=== PATIENT | female | born 1940 | race Hispanic/Latino ===

== ENCOUNTER 2018-11-12 21:07 | Inpatient (IN) | payer MEDICARE, OTHER ==
[2018-11-12] MEDS ORDERED: NACL 0.9% 1000 ML IV ONE (21:30)
--- NOTE | 2018-11-12 21:42 | Emergency Department Report ---
ED General Adult HPI - General Chief complaint: Fall Stated complaint: FALL/NECK PAIN Time Seen by Provider: 11/12/18 21:17 Source: EMS Mode of arrival: Stretcher Limitations: Physical Limitation - History of Present Illness Initial comments: Patient is 78 years old female, lives by herself, patient brought to the emergency room via EMS after patient daughter found patient on the floor, confused. The patient and daughter think that she fell from bed. Family stated that patient was recently discharged from [facility] for anemia that required 2 units of blood. They stated that she had a upper endoscopy and they couldn't find any abnormalities and she was referred to follow-up with a hematology as an outpatient. In the emergency room patient is alert but confused with no significant distress. Patient is unable to answer questions a ppropriately. Patient found to be tachycardic with a temperature of 100.3. Sepsis protocol initiated. - Related Data Allergies Allergy/AdvReac Type Severity Reaction Status Date / Time ibuprofen Allergy Unknown Verified 11/12/18 21:44 Penicillins Allergy Hives Verified 11/12/18 21:43 codeine AdvReac Nausea Verified 11/12/18 21:44 ED Review of Systems ROS: Stated complaint: FALL/NECK PAIN Other details as noted in HPI Comment: Unobtainable due to pts medical conditions ED Past Medical Hx - Social History Smoking Status: Never Smoker Substance Use Type: None ED Physical Exam - General Limitations: Physical Limitation General appearance: alert, in no apparent distress - Head Head exam: Present: atraumatic, normocephalic, normal inspection - Eye Eye exam: Present: normal appearance, PERRL - ENT ENT exam: Present: mucous membranes dry - Neck Neck exam: Present: normal inspection, full ROM. Absent: tenderness, meningismus, lymphadenopathy, thyromegaly - Respiratory Respiratory exam: Present: normal lung sounds bilaterally - Cardiovascular Cardiovascular Exam: Present: tachycardia - GI/Abdominal GI/Abdominal exam: Present: soft, normal bowel sounds. Absent: distended, tenderness, guarding, rebound, rigid, organomegaly, mass, bruit, pulsatile mass, hernia - Extremities Exam Extremities exam: Present: normal inspection, full ROM, normal capillary refill. Absent: pedal edema, calf tenderness - Back Exam Back exam: Present: normal inspection, full ROM. Absent: CVA tenderness (R), CVA tenderness (L), muscle spasm, paraspinal tenderness, vertebral tenderness - Neurological Exam Neurological exam: Present: alert, altered, CN II-XII intact - Psychiatric Psychiatric exam: Present: normal mood - Skin Skin exam: Present: warm, intact, normal color ED Course Vital Signs 11/12/18 11/12/18 11/12/18 21:24 21:30 21:35 Temperature 100.3 F H Pulse Rate 114 H 109 H 110 H Respiratory 21 18 18 Rate Blood Pressure 122/66 Blood Pressure 136/61 [Left] O2 Sat by Pulse 98 97 100 Oximetry 11/12/18 11/12/18 11/12/18 21:46 22:00 22:11 Temperature Pulse Rate 108 H 99 H Respiratory 26 H 19 18 Rate Blood Pressure 122/66 126/58 Blood Pressure [Left] O2 Sat by Pulse 100 99 Oximetry 11/13/18 11/13/18 11/13/18 00:01 00:16 00:30 Temperature Pulse Rate 96 H 92 H Respiratory 13 17 Rate Blood Pressure 126/58 126/58 126/58 Blood Pressure [Left] O2 Sat by Pulse 95 99 94 Oximetry 11/13/18 11/13/18 11/13/18 01:00 01:30 02:00 Temperature Pulse Rate 99 H 85 82 Respiratory 18 14 11 L Rate Blood Pressure 114/72 114/72 106/60 Blood Pressure [Left] O2 Sat by Pulse 97 99 98 Oximetry - Reevaluation(s) Reevaluation #1: 11/13/18 02:38 NIHSS is 2. ED Medical Decision Making - Lab Data Result diagrams: 11/12/18 21:35 11/12/18 21:35 - EKG Data -: EKG Interpreted by Nc EKG shows normal: sinus rhythm Rate: tachycardia - EKG Data Interpretation: no acute changes - Radiology Data Radiology results: report reviewed - Medical Decision Making Patient is 78 years old female, lives by herself, patient brought to the emergency room via EMS after patient daughter found patient on the floor, confused. The patient and daughter think that she fell from bed. Family stated that patient was recently discharged from [facility] for anemia that required 2 units of blood. They stated that she had a upper endoscopy and they couldn't find any abnormalities and she was referred to follow-up with a hematology as an outpatient. In the emergency room patient is alert but confused with no significant distress. Patient is unable to answer questions appropriately. Patient found to be tachycardic with a temperature of 100.3. Sepsis protocol initiated. Patient labs reviewed, CT head CT C-spine and CT abdomen and pelvis reviewed. I discussed the patient with Dr. Gambino, she agreed to admit the patient to medical service for further management. Critical Care Time: Yes Critical care time in (mins) excluding proc time.: 30 Critical care attestation.: If time is entered above; I have spent that time in minutes in the direct care of this critically ill patient, excluding procedure time. ED Disposition Clinical Impression: Altered mental status, Elevated troponin, Sepsis, Colonic mass, Pelvic mass in female Disposition: DC-09 OP ADMIT IP TO THIS HOSP Is pt being admited?: Yes Condition: Stable Referrals: ALVAREZ CASTILLO MD [Primary Care Provider] - 3-5 Days
[2018-11-12 22:10] LABS: Basophils % (Auto) 0.2 % (0.0-1.8); Hematocrit 23.9 % (30.3-42.9); Hemoglobin 8.2 gm/dl (10.1-14.3); Lymphocytes # (Auto) 0.5 K/mm3 (1.2-5.4); Lymphocytes % (Auto) 4.9 % (13.4-35.0); Mean Corpuscular HGB Conc 35 % (30-34); Mean Corpuscular Volume 89 fl (79-97); Monocytes # (Auto) 0.7 K/mm3 (0.0-0.8); Monocytes % (Auto) 7.5 % (0.0-7.3); Platelet Count 261 K/mm3 (140-440); Red Blood Count 2.69 M/mm3 (3.65-5.03); Red Cell Distribution Width 16.9 % (13.2-15.2)
[2018-11-12 22:20] LABS: INR 1.41 (0.87-1.13)
[2018-11-12 22:21] LABS: Partial Thromboplastin Time 34.8 Sec. (24.2-36.6)
[2018-11-12 22:47] LABS: Albumin 2.8 g/dL (3.9-5); Bilirubin,Direct 1.3 mg/dL (0-0.2)
[2018-11-12 22:48] LABS: Alanine Aminotransferase 90 units/L (7-56); Albumin 2.8 g/dL (3.9-5); BUN/Creatinine Ratio 16; Blood Urea Nitrogen 8 mg/dL (7-17); Calcium 8.9 mg/dL (8.4-10.2); Hemolysis Index 0
[2018-11-12 22:59] LABS: LDL Cholesterol,Direct 46 mg/dL (50-130)
[2018-11-12 23:02] LABS: Bilirubin,Urine NEG (Negative); Blood,Urine MOD (Negative); Color,Urine Yellow (Yellow); Protein,Urine <15 mg/dL mg/dL (Negative)
[2018-11-12 23:10] LABS: HDL Cholesterol 22 mg/dL (40-59)
--- NOTE | 2018-11-12 23:42 | Cat Scan Report ---
PROCEDURE: CT CERVICAL SPINE WO CON TECHNIQUE: Computerized tomography of the cervical spine was performed from the skull base to T1 wit hout contrast material. CT DOSE LENGTH PRODUCT: mGycm HISTORY: NECK INJURY COMPARISONS: None . FINDINGS: Vertebral alignment and height are within normal limits. There is evidence of surgical fusion from C4 to C7 is anterior plate and screws. An acute fracture is not identified. C1-2: Narrowing of the atlantoaxial joint space is noted with osteophyte formation. C2-3: Mild degree left neural foraminal stenosis is noted secondary to moderate degree of facet arthr opathy.. C3-4: Mild degree broad-based disc complexes noted without significant spinal canal compromise. There is mild to moderate degree bilateral neural foraminal stenoses secondary to uncovertebral and facet degenerative changes.. C4-5: No significant spinal canal or neural foraminal compromise is.. C5-6: No significant spinal canal or neural foraminal compromise is noted.. C6-7: Mild degree broad-based disc osteophyte complexes noted without significant spinal canal or isidro ral foraminal compromise.. C7-T1: Moderate degree right facet arthropathy is noted without significant spinal canal or neural fo raminal compromise.. Fractures: None . IMPRESSION: No acute fracture Anterior cervical fusion pleural C4-C7 Multilevel cervical spondylosis as described above.. This document is electronically signed by Clemente Bonilla MD., November 12 2018 11:40:21 PM ET
--- NOTE | 2018-11-12 23:48 | Cat Scan Report ---
PROCEDURE: CT HEAD/BRAIN WO CON TECHNIQUE: Computerized tomography of the head was performed without contrast material. HISTORY: FALL/AMS COMPARISONS: None . FINDINGS: There are lacunar infarcts in the subcortical white matter of the frontal lobes bilaterally and right caudate, some of indeterminate age. White matter changes most likely represent chronic postischemic demyelination/small vessel disease. There is no evidence of intracranial hemorrhage or mass effect. Ventricular size is concordant with the degree of atrophy. There is atherosclerotic vascular calcification of the internal carotid arteries and vertebral arteri es bilaterally at the skull base. The visualized portions of the orbits, paranasal and mastoid sinuses are notable for deformity of the medial wall of the right orbit. This may be chronic posttraumatic change or may be congenital in angela ure. There is no evidence of acute change in the adjacent ethmoid sinus to suggest that this is acute . There is no evidence of fracture of the cranial vault. There is left parietal scalp soft tissue swelling. IMPRESSION: 1. Lacunar infarcts in the subcortical white matter of the frontal lobes bilaterally and right basal ganglia, some of indeterminate age. If there is a clinical suspicion of acute cerebral ischemia and if there is no clinical contraindicat ion, MRI brain may be helpful. 2. No evidence of intracranial hemorrhage or mass effect. 3. Left parietal scalp soft tissue swelling. 4. Deformity medial wall right orbit which may represent sequela of previous medial orbital wall frac ture or may be congenital in nature. There is no evidence of acute change in the adjacent ethmoid sin us to suggest that this is an acute fracture. This document is electronically signed by Rasheeda Rodriguez MD., November 12 2018 11:46:25 PM ET
--- NOTE | 2018-11-13 00:12 | Cat Scan Report ---
PROCEDURE: CT ABDOMEN PELVIS W CON TECHNIQUE: Computerized axial tomography of the abdomen and pelvis was performed after the administr ation of IV iodinated nonionic contrast. CT DOSE LENGTH PRODUCT: mGycm HISTORY: abdominal pain COMPARISONS: None . FINDINGS: A partially visualized 7 millimeters subpleural nodule is noted in the right lower lobe. There is a s mall hiatal hernia. Liver, spleen, pancreas and adrenal glands are within normal limits. Bilateral ki dneys demonstrate uniform enhancement without hydronephrosis. Urinary bladder is partially distended with normal outlines. Aorta is of normal caliber. There is no free air. Mild degree free fluid is not ed in the pelvis. There is also mild degree fluid in the perihepatic region. Status post cholecystect neal. Small bowel loops are within normal limits. There appears to be circumferential wall thickening involving the hepatic flexure resulting in luminal narrowing. Multiple nodular lesions are identified medial to the suspected colonic mass measuring up to 2.3 x 1.9 cm. There appears to be a mass lesion in the cul-de-sac measuring 6.6 x 4.9 cm. Vertebral height is normal. A 9 mm lymph node is noted in the left iliac region. IMPRESSION: Findings are suspicious for colonic carcinoma involving the hepatic flexure. Nodular lesions medial t o the hepatic flexure most likely represent lymphadenopathy. A large mass lesion in the cul-de-sac can be further evaluated using pelvic ultrasound. Small hiatal hernia 7 mm nodule in the visualized right lower lobe. A metastatic deposit is suspected. Mild degree ascites. This document is electronically signed by Clemente Bonilla MD., November 13 2018 12:10:10 AM ET
--- NOTE | 2018-11-13 00:28 | XRay Report ---
PROCEDURE: XR CHEST 1V AP TECHNIQUE: Chest radiograph single view. HISTORY: SEPSIS COMPARISONS: None . FINDINGS: Heart: Normal. Mediastinum/Vessels: Normal. Lungs/Pleural space: Normal. Bony thorax: No acute osseous abnormality. Life support devices: None. IMPRESSION: No acute cardiopulmonary abnormality. This document is electronically signed by Katina Heck DO., November 13 2018 12:26:16 AM ET
[2018-11-13] MEDS ORDERED: VANCOMYCIN/NS 1 GM/250 ML 1 GM/250 ML BAG IV ONE (00:29)
[2018-11-13] MEDS ORDERED: FLAGYL 500 MG/100 ML 500 MG/100 ML BAG IV ONE (00:30)
--- NOTE | 2018-11-13 01:38 | Ultrasound Report ---
PROCEDURE: US PELVIC COMPLETE TECHNIQUE: Transabdominal imaging was obtained of the pelvis. HISTORY: abdominal pain/abnormal CT abdomen and pelvis COMPARISONS: CT abdomen and pelvis 11/12/2018 FINDINGS: There is a heterogeneous solid lesion behind the bladder in the pelvis measuring 8.6 x 5.3 x 7.8 cm. Free fluid is not seen. The uterus and ovaries are not identified. IMPRESSION: Heterogeneous solid lesion behind the bladder measuring 8.6 x 5.3 x 7.8 cm. Whether this is neoplasti c or inflammatory is uncertain. Free fluid not seen.. This document is electronically signed by Ricky Ryan MD., November 13 2018 01:36:26 AM ET
[2018-11-13] MEDS ORDERED: ZOFRAN IV PRN (02:49)
[2018-11-13] MEDS ORDERED: SODIUM CHLORIDE FLUSH SYRINGE 10 ML IV PRN (02:49)
--- NOTE | 2018-11-13 03:03 | History and Physical Report ---
History of Present Illness Chief complaint: Found on the floor confused History of present illness: 78-year-old female who Lives by herself. Per her daughter, her daughter was calling her on unable to reach her by phone, had also been went to her place of residence where she found her on the floor confused, she was laying on the floor beside her bed. The daughter feels that she probably fell from the bed or slipp ed off from the bed. She was recently at [facility], [place] where she was treated for anemia requiring 2 units of blood. She also had EGD which was negative. She was planned for hematology follow-up as an outpatient -The patient is very tearful and sad, these that she doesn't remember what happened she thinks she may have fell, she does not remember at all. She doesn't think she passed out. When asked further questions patient begins to cry and becomes very emotional -Apparently in the ER she complained of some neck pain, she is not complaining of neck pain at this time. -Patient denies chest pain Past medical history; unable to obtain due to mental status Past surgical history; unable to obtain due to mental status Social history; unable to obtain due to mental status Family history; unable to obtain due to mental status Medications and Allergies Allergies Allergy/AdvReac Type Severity Reaction Status Date / Time ibuprofen Allergy Unknown Verified 11/12/18 21:44 Penicillins Allergy Hives Verified 11/12/18 21:43 codeine AdvReac Nausea Verified 11/12/18 21:44 Active Meds: Active Medications Acetaminophen (Tylenol) 650 mg PO Q4H PRN PRN Reason: Pain MILD(1-3)/Fever >100.5/CLEMENT Enoxaparin Sodium (Lovenox) 40 mg SUB-Q QDAY [facility] Sodium Chloride (Nacl 0.9% 1000 Ml) 1,000 mls @ 125 mls/hr IV DIRECT DEYA Stop: 11/14/18 02:59 Levofloxacin/Dextrose (Levaquin 750mg/150ml) 750 mg in 150 mls @ 100 mls/hr IV Q24HR [facility]; Protocol Stop: 11/16/18 09:59 Ondansetron HCl (Zofran) 4 mg IV Q8H PRN PRN Reason: Nausea And Vomiting Sodium Chloride (Sodium Chloride Flush Syringe 10 Ml) 10 ml IV BID [facility] Sodium Chloride (Sodium Chloride Flush Syringe 10 Ml) 10 ml IV PRN PRN PRN Reason: LINE FLUSH Review of Systems ROS unobtainable: due to mental status Exam - Constitutional Vitals: Temp Pulse Resp BP Pulse Ox 100.3 F H 82 11 L 106/60 98 11/12/18 21:35 11/13/18 02:00 11/13/18 02:00 11/13/18 02:00 11/13/18 02:00 General appearance: Present: no acute distress, well-nourished - EENT Eyes: Present: PERRL ENT: hearing intact, clear oral mucosa - Neck Neck: Present: supple, normal ROM - Respiratory Respiratory effort: normal Respiratory: bilateral: CTA - Cardiovascular Heart Sounds: Present: S1 & S2. Absent: rub, click - Extremities Extremities: pulses symmetrical, No edema Peripheral Pulses: within normal limits - Abdominal General gastrointestinal: Present: soft, non-tender, non-distended, normal bowel sounds Female genitourinary: Present: normal - Integumentary Integumentary: Present: clear, warm, dry - Musculoskeletal Musculoskeletal: gait normal, strength equal bilaterally - Psychiatric Psychiatric: no appropriate mood/affect, no intact judgment & insight, coopera tive (confused) - Neurologic Neurologic: CNII-XII intact, moves all extremities, other (confused, alert) Results - Labs CBC & Chem 7: 11/12/18 21:35 11/12/18 21:35 Labs: Laboratory Last Values WBC 9.2 K/mm3 (4.5-11.0) 11/12/18 21:35 RBC 2.69 M/mm3 (3.65-5.03) L 11/12/18 21:35 Hgb 8.2 gm/dl (10.1-14.3) L 11/12/18 21:35 Hct 23.9 % (30.3-42.9) L 11/12/18 21:35 MCV 89 fl (79-97) 11/12/18 21:35 MCH 31 pg (28-32) 11/12/18 21:35 MCHC 35 % (30-34) H 11/12/18 21:35 RDW 16.9 % (13.2-15.2) H 11/12/18 21:35 Plt Count 261 K/mm3 (140-440) 11/12/18 21:35 Lymph % (Auto) 4.9 % (13.4-35.0) L 11/12/18 21:35 [place] % (Auto) 7.5 % (0.0-7.3) H 11/12/18 21:35 Eos % (Auto) 0.0 % (0.0-4.3) 11/12/18 21:35 Baso % (Auto) 0.2 % (0.0-1.8) 11/12/18 21:35 Lymph # 0.5 K/mm3 (1.2-5.4) L 11/12/18 21:35 [place] # 0.7 K/mm3 (0.0-0.8) 11/12/18 21:35 Eos # 0.0 K/mm3 (0.0-0.4) 11/12/18 21:35 Baso # 0.0 K/mm3 (0.0-0.1) 11/12/18 21:35 Seg Neutrophils % 87.4 % (40.0-70.0) H 11/12/18 21:35 Seg Neutrophils # 8.1 K/mm3 (1.8-7.7) H 11/12/18 21:35 PT 16.9 Sec. (12.2-14.9) H 11/12/18 21:35 INR 1.41 (0.87-1.13) H 11/12/18 21:35 APTT 34.8 Sec. (24.2-36.6) 11/12/18 21:35 Sodium 131 mmol/L (137-145) L 11/12/18 21:35 Potassium 3.1 mmol/L (3.6-5.0) L 11/12/18 21:35 Chloride 97.0 mmol/L (98-107) L 11/12/18 21:35 Carbon Dioxide 22 mmol/L (22-30) 11/12/18 21:35 15 mmol/L 11/12/18 21:35 BUN 8 mg/dL (7-17) 11/12/18 21:35 0.5 mg/dL (0.7-1.2) L 11/12/18 21:35 Estimated GFR > 60 ml/min 11/12/18 21:35 16 % 11/12/18 21:35 Glucose 115 mg/dL (65-100) H 11/12/18 21:35 Lactic Acid 1.00 mmol/L (0.7-2.0) 11/13/18 00:22 Calcium 8.9 mg/dL (8.4-10.2) 11/12/18 21:35 2.00 mg/dL (0.1-1.2) H 11/12/18 21:35 2.00 mg/dL (0.1-1.2) H 11/12/18 21:35 1.3 mg/dL (0-0.2) H 11/12/18 21:35 0.7 mg/dL 11/12/18 21:35 AST 67 units/L (5-40) H 11/12/18 21:35 AST 67 units/L (5-40) H 11/12/18 21:35 ALT 90 units/L (7-56) H 11/12/18 21:35 ALT 92 units/L (7-56) H 11/12/18 21:35 61 units/L (35-129) 11/12/18 21:35 62 units/L (35-129) 11/12/18 21:35 0.071 ng/mL (0.00-0.029) H D 11/13/18 00:33 5.3 g/dL (6.3-8.2) L 11/12/18 21:35 5.4 g/dL (6.3-8.2) L 11/12/18 21:35 2.8 g/dL (3.9-5) L 11/12/18 21:35 2.8 g/dL (3.9-5) L 11/12/18 21:35 1.1 % 11/12/18 21:35 1.1 % 11/12/18 21:35 Triglycerides 93 mg/dL (2-149) 11/12/18 21:35 Cholesterol 88 mg/dL (50-199) 11/12/18 21:35 46 mg/dL (50-130) L 11/12/18 21:35 22 mg/dL (40-59) L 11/12/18 21:35 4.00 % 11/12/18 21:35 Yellow (Yellow) 11/12/18 22:40 Clear (Clear) 11/12/18 22:40 6.0 (5.0-7.0) 11/12/18 22:40 Ur Specific [place] 1.011 (1.003-1.030) 11/12/18 22:40 <15 mg/dl mg/dL (Negative) 11/12/18 22:40 Neg mg/dL (Negative) 11/12/18 22:40 Neg mg/dL (Negative) 11/12/18 22:40 Mod (Negative) 11/12/18 22:40 Neg (Negative) 11/12/18 22:40 Neg (Negative) 11/12/18 22:40 2.0 mg/dL (<2.0) 11/12/18 22:40 Ur Leukocyte Esterase Tr (Negative) 11/12/18 22:40 10.0 /HPF (0.0-6.0) H 11/12/18 22:40 32.0 /HPF (0.0-6.0) 11/12/18 22:40 Blood Type O POSITIVE 11/12/18 21:35 Antibody Screen Negative 11/12/18 21:35 Assessment and Plan Assessment and plan: 78-year-old woman who was found on the floor in her home confused pelvic US; Heterogeneous solid lesion behind the bladder measuring 8.6 x 5.3 x 7 .8 cm. Whether this is neoplastic or inflammatory is uncertain. Free fluid not seen. Ct A/p; Findings are suspicious for colonic carcinoma involving the hepatic flexure. Nodular lesions medial to the hepatic flexure most likely represent lymphadenopathy. A large mass lesion in the cul-de-sac can be further evaluated using pelvic ultrasound. Small hiatal hernia 7 mm nodule in the visualized right lower lobe. A metastatic deposit is suspected. Mild degree ascites. cxr; No acute cardiopulmonary abnormality. CTH; 1. Lacunar infarcts in the subcortical white matter of the frontal lobes bilaterally and right basal ganglia, some of indeterminate age. If there is a clinical suspicion of acute cerebral ischemia and if there is no clinical contraindication, MRI brain may be helpful. 2. No evidence of intracranial hemorrhage or mass effect. 3. Left parietal scalp soft tissue swelling. 4. Defo rmity medial wall right orbit which may represent sequela of previous medial orbital wall fracture or may be congenital in nature. There is no evidence of acute change in the adjacent ethmoid sinus to suggest that this is an acute fracture. Colonic mass, mass behind bladder and lung lesion Strongly suspicious for malignancy, hematology/oncology consulted acute metabolic encephalopathy, ? CVA currently non focal, but would benefit from stroke workup in meantime given hx of strokes -obtain MR brain, MRA brain, carotid dopplers, echo -allow permissive htn -aspirin and high dose statin, check Lipid panel -neurology consult -check ammonia level UTI? Mild leukorruria, abx, fup urine cx Coagulopathy Elevated PT/INR, treated vitamin K repeat levels daily, check ammonia level Normocytic Anemia Has had recent EGD at [facility], [place], status post 2 units of blood recently at [facility], [place], hemoglobin stable, continue to monitor -Check folate and B12 and iron panel Hypokalemia Has been repleted Hyponatremia normal saline Abnormal troponin Continue to trend troponins and obtain cardiology consult X DVT prophylaxis with Lovenox
[2018-11-13] MEDS ORDERED: K-DUR PO ONE ×2 (03:08→04:18)
[2018-11-13] MEDS ORDERED: ECOTRIN PO ONE (03:27)
[2018-11-13] MEDS ORDERED: ASPIRIN ONE (04:18)
[2018-11-13 04:46] LABS: % Iron Saturation 7.89 %
[2018-11-13] MEDS: VITAMIN K (ADULT ONLY) 10 MG in NACL 0.9% 50 ML IV SCH (05:00)
[2018-11-13] MEDS ORDERED: MAGNESIUM SULFATE 4GM/100ML 4 GM/100 ML BAG IV ONE (05:44)
[2018-11-13] MEDS: NACL 0.9% 1000 ML 1,000 ML IV SCH ×2 (06:14→22:08)
[2018-11-13] MEDS ORDERED: FERRLECIT 125 MG in NACL 0.9% 100 ML IV ONE (09:00)
[2018-11-13] MEDS: LOVENOX SUB-Q SCH (09:30)
[2018-11-13] MEDS: ASPIRIN PO SCH (09:31)
--- NOTE | 2018-11-13 09:56 | Consultation ---
History of Present Illness Consult date: 11/13/18 Requesting physician: CICI TORRE Consult reason: elevated troponin History of present illness: The pt is an 78-year-old female who presented for evaluation after falling down at home several times. Pt lives by herself and is a rather poor historian. Per the chart her daughter reported that she had been calling the pt and was unable to reach her by phone and went to pt's house where she found pt on the floor con fused, she was laying on the floor beside her bed, pt appeared to have fallen from the bed. Pt is not sure if she lost consciousness or not. Pt was recently at [facility] where she was treated for anemia requiring 2 units of blood. She also had EGD which was negative. She was planned for hematology follow-up as an outpatient. Pt denies any known prior cardiac issues. She denies any occurrence of chest pain, palpitations, n/v, diaphoresis. Cardiology has been consulted for minimally elevated troponins. Pt found to have colonic mass and lung lesion strongly suspicious for malignancy. She reports unintentional 60lb weight loss over the past year. Pt does report some abdominal pain. Medications and Allergies Allergies Allergy/AdvReac Type Severity Reaction Status Date / Time ibuprofen Allergy Unknown Verified 11/12/18 21:44 Penicillins Allergy Hives Verified 11/12/18 21:43 codeine AdvReac Nausea Verified 11/12/18 21:44 Active Meds: Active Medications Acetaminophen (Tylenol) 650 mg PO Q4H PRN PRN Reason: Pain MILD(1-3)/Fever >100.5/CLEMENT Aspirin (Aspirin) 325 mg PO QDAY [facility] Last Admin: 11/13/18 09:31 Dose: 325 mg Documented by: Atorvastatin Calcium (Lipitor) 40 mg PO QHS DEYA Enoxaparin Sodium (Lovenox) 40 mg SUB-Q QDAY [facility] Last Admin: 11/13/18 09:30 Dose: 40 mg Documented by: Sodium Chloride (Nacl 0.9% 1000 Ml) 1,000 mls @ 125 mls/hr IV DIRECT DEYA Stop: 11/14/18 02:59 Last Admin: 11/13/18 06:14 Dose: 125 mls/hr Documented by: Levofloxacin/Dextrose (Levaquin 750mg/150ml) 750 mg in 150 mls @ 100 mls/hr IV Q24HR [facility]; Protocol Stop: 11/16/18 09:59 Phytonadione 10 mg/ Sodium (Chloride) 51 mls @ 100 mls/hr IV Q24H [facility] Stop: 11/15/18 05:31 Last Admin: 11/13/18 05:00 Dose: 100 mls/hr Documented by: Ferric Sodium Gluconate Complex 125 mg/ Sodium Chloride 110 mls @ 100 mls/hr IV ONCE ONE Stop: 11/13/18 10:05 Last Admin: 11/13/18 09:27 Dose: 100 mls/hr Documented by: Ondansetron HCl (Zofran) 4 mg IV Q8H PRN PRN Reason: Nausea And Vomiting Sodium Chloride (Sodium Chloride Flush Syringe 10 Ml) 10 ml IV BID DEYA Sodium Chloride (Sodium Chloride Flush Syringe 10 Ml) 10 ml IV PRN PRN PRN Reason: LINE FLUSH Review of Systems Constitutional: weight loss, no weight gain Ears, nose, mouth and throat: no ear pain, no nose pain, no sinus pressure, no sinus pain Cardiovascular: syncope (questionable), no chest pain, no orthopnea, no palpitations, no rapid/irregular heart beat, no edema, no shortness of breath, no dyspnea on exertion Respiratory: no cough, no shortness of breath, no dyspnea on exertion, no congestion, no wheezing, no pain on inspiration Gastrointestinal: abdominal pain, constipation (intermittent), no nausea, no vomiting, no diarrhea Genitourinary Female: no pelvic pain, no flank pain, no dysuria, no urinary frequency, no urgency Musculoskeletal: no neck stiffness, no neck pain, no shooting arm pain, no arm numbness/tingling, no low back pain, no shooting leg pain Integumentary: no rash, no pruritis, no redness, no sores, no wounds Neurological: syncope (questionable), no head injury, no paralysis, no seizures Psychiatric: no anxiety Endocrine: no cold intolerance, no heat intolerance Hematologic/Lymphatic: no easy bruising, no easy bleeding Allergic/Immunologic: no urticaria, no wheezing Physical Examination Vital Signs Pulse Resp Pulse Ox 114 H 21 98 11/12/18 21:24 11/12/18 21:24 11/12/18 21:24 General appearance: no acute distress HEENT: Positive: PERRL, Normocephaly, Mucus Membranes Moist Neck: Positive: neck supple, trachea midline Cardiac: Positive: Reg Rate and Rhythm, S1/S2 Lungs: Positive: Decreased Breath Sounds Neuro: Positive: Grossly Intact Abdomen: Negative: Tender Skin: Negative: Rash Musculoskeletal: No Pain Extremities: Absent: edema Results 11/12/18 21:35 11/12/18 21:35 Cardiac Enzymes 11/12/18 11/12/18 Range/Units 21:35 21:35 AST 67 H 67 H (5-40) units/L Coagulation 11/12/18 Range/Units 21:35 PT 16.9 H (12.2-14.9) Sec. INR 1.41 H (0.87-1.13) APTT 34.8 (24.2-36.6) Sec. Lipids 11/12/18 Range/Units 21:35 Triglycerides 93 (2-149) mg/dL Cholesterol 88 (50-199) mg/dL HDL Cholesterol 22 L (40-59) mg/dL Cholesterol/HDL Ratio 4.00 % CBC 11/12/18 Range/Units 21:35 WBC 9.2 (4.5-11.0) K/mm3 RBC 2.69 L (3.65-5.03) M/mm3 Hgb 8.2 L (10.1-14.3) gm/dl Hct 23.9 L (30.3-42.9) % Plt Count 261 (140-440) K/mm3 Lymph # 0.5 L (1.2-5.4) K/mm3 [place] # 0.7 (0.0-0.8) K/mm3 Eos # 0.0 (0.0-0.4) K/mm3 Baso # 0.0 (0.0-0.1) K/mm3 Comprehensive Metabolic Panel 11/12/18 11/12/18 Range/Units 21:35 21:35 Sodium 131 L (137-145) mmol/L Potassium 3.1 L (3.6-5.0) mmol/L Chloride 97.0 L (98-107) mmol/L Carbon Dioxide 22 (22-30) mmol/L BUN 8 (7-17) mg/dL Creatinine 0.5 L (0.7-1.2) mg/dL Glucose 115 H (65-100) mg/dL Calcium 8.9 (8.4-10.2) mg/dL Direct Bilirubin 1.3 H (0-0.2) mg/dL Indirect Bilirubin 0.7 mg/dL AST 67 H 67 H (5-40) units/L ALT 90 H 92 H (7-56) units/L Alkaline Phosphatase 61 62 (35-129) units/L Total Protein 5.4 L 5.3 L (6.3-8.2) g/dL Albumin 2.8 L 2.8 L (3.9-5) g/dL - Imaging and Cardiology Echo: pending EKG: report reviewed, image reviewed EKG interpretations - Telemetry EKG Rhythm: Sinus Rhythm - EKG Sinus rhythms and dysrhythmias: sinus tachycardia Assessment and Plan Pt noted to have minimally elevated troponins. ECG with NAF. She denies any known prior cardiac issues. She denies any occurrence of chest pain, palpitations, n/v, diaphoresis. She has had questionable syncope. Pt found to have colonic mass and lung lesion strongly suspicious for malignancy. She reports unintentional 60lb weight loss over the past year. Obtain echo. Replete electrolytes. Cont observation on telemetry. Further recs to follow per hospital course. The patient has been seen in conjunction with Dr. Dayana العلي who agrees with the assessment and plan of care. - Patient Problems (1) Syncope Current Visit: Yes Status: Suspected (2) Altered mental status Current Visit: Yes Status: Acute (3) Colonic mass Current Visit: Yes Status: Acute (4) Elevated troponin Current Visit: Yes Status: Acute (5) Anemia Current Visit: Yes Status: Acute (6) Hypokalemia Current Visit: Yes Status: Acute (7) Hypomagnesemia Current Visit: Yes Status: Acute (8) Elevated LFTs Current Visit: Yes Status: Acute
--- NOTE | 2018-11-13 10:14 | Magnetic Resonance Report ---
MRI BRAIN WITHOUT CONTRAST: 11/13/18 CLINICAL: Stroke. TECHNIQUE: Axial diffusion, T1, T2, gradient echo T2*, coronal and axial FLAIR and sagittal T1 sequences on a 1.5 Silvia magnet. FINDINGS: The ventricles and sulci are enlarged and the sulci are disproportionately enlarged in the frontal and temporal lobes. No restricted diffusion. A chronic lacunar infarct of the left centrum semi-ovale. Moderate bilateral periventricular and multifocal white matter hyperintensities on FLAIR and T2 No hemorrhage, edema or extra-axial collection. No chronic microbleeds on the gradient echo sequence. Normal pituitary and optic chiasm. The brainstem and cerebellum are normal. Intact vascular flow voids. Normal sinuses. The orbits, and soft tissues are normal. Normal calvarium and skull base. IMPRESSION: 1. No evidence of acute/ subacute infarct or hemorrhage. 2. Cortical atrophy, worse in the frontal and temporal lobes. 3. A chronic lacunar infarct of the left centrum semi-ovale. 4. Moderate chronic white matter microangiopathy.
--- NOTE | 2018-11-13 10:18 | Vascular Lab Report ---
PROCEDURE: VL CAROTID DUPLEX BILAT TECHNIQUE: Carotid ultrasound. Degree of carotid stenosis calculated by indirect methods via the peak systolic velocities of the ICA and CCA and reference with the society of Radiologist and Ultrasound consensus conference radiology 2003. HISTORY: stroke COMPARISONS: None currently available. FINDINGS: Note: Measurement of carotid stenosis is based on flow velocity values that correlate with the [place] Symptomatic Carotid Endarterectomy Trial (NASCET) based stenosis criteria using the internal carotid artery diameter as the denominator for stenosis calculation. RIGHT CCA, ICA, and ECA (cm/s): 90, 123, and 81. Ratio = 1.4. LEFT CCA, ICA, and ECA (cm/s): 92, 92, and 102. Ratio = 1.0. There is smooth heterogeneous plaque in both carotids. Both vertebral arteries demonstrate antegrade flow. Normal spectral rhythm is identified. IMPRESSION: * No hemodynamically significant (>50%) stenosis noted based on the ratios, velocities, and color Do ppler images. This document is electronically signed by Felix Arthur MD., November 13 2018 10:16:44 AM ET
--- NOTE | 2018-11-13 10:24 | Magnetic Resonance Report ---
MRA HEAD WITHOUT CONTRAST: 11/13/18 03:41:00 CLINICAL: Stroke. TECHNIQUE: Axial 3-D [id number] MR angiography of the [place] with review of axial source images. FINDINGS: No flow demonstrated in the right MCA at its origin. Bilateral ICAs, ACAs and lapping machine set up operator and the left MCA are intact. Normal basilar and vertebral arteries. The right vertebral artery is dominant. No aneurysm. IMPRESSION: Right MCA occlusion.
[2018-11-13] MEDS: LEVAQUIN 750MG/150ML 750 MG/150 ML BAG IV SCH (10:25)
[2018-11-13] MEDS: SODIUM CHLORIDE FLUSH SYRINGE 10 ML IV SCH (10:47)
[2018-11-13 11:16] LABS: Amphetamine Screen,Urine PRESUMPTIVE NEGATIVE; Benzodiazepines Screen,Urine PRESUMPTIVE NEGATIVE; Cannabinoid Screen,Urine PRESUMPTIVE NEGATIVE; Cocaine Screen,Urine PRESUMPTIVE NEGATIVE; Methadone Screen,Urine PRESUMPTIVE NEGATIVE; Opiate Screen,Urine PRESUMPTIVE NEGATIVE
--- NOTE | 2018-11-13 14:58 | Event Note ---
Patient was seen and evaluated earlier this morning. Patient is admitted for fall, suspected metastatic cancer. She has a mild elevation in troponin and cardiology consulted. Hematology oncology consulted. Patient was alert and oriented. Continue management per H&P.
--- NOTE | 2018-11-13 17:59 | Consultation ---
History of Present Illness Consult date: 11/13/18 Chief complaint: LOC History of present illness: This is an 78 YO F who presented tot he ED after she slipped and fell. Pt hit her head and thinks she passes out. Once she woke up she could not get up. Her sister came to check on her and had to break in. On my arrival she is awake, alert and oriented x 4. Past History Past Medical History: hyperlipidemia, stroke Past Surgical History: No surgical history Social history: Lives alone Family history: hypertension Medications and Allergies Allergies Allergy/AdvReac Type Severity Reaction Status Date / Time ibuprofen Allergy Unknown Verified 11/12/18 21:44 Penicillins Allergy Hives Verified 11/12/18 21:43 codeine AdvReac Nausea Verified 11/12/18 21:44 Home Medications Medication Instructions Recorded Confirmed Last Taken Type Atorvastatin [Lipitor Tab] 40 mg PO DAILY 11/13/18 11/13/18 11/12/18 09:00 History Fenofibrate [Tricor] 145 mg PO QDAY 11/13/18 11/13/18 11/12/18 09:00 History Pantoprazole [Protonix] 40 mg PO QDAY 11/13/18 11/13/18 11/12/18 08:00 History Active Meds: Active Medications Acetaminophen (Tylenol) 650 mg PO Q4H PRN PRN Reason: Pain MILD(1-3)/Fever >100.5/CLEMENT Aspirin (Aspirin) 325 mg PO QDAY [facility] Last Admin: 11/13/18 09:31 Dose: 325 mg Documented by: Atorvastatin Calcium (Lipitor) 40 mg PO QHS DEYA Enoxaparin Sodium (Lovenox) 40 mg SUB-Q QDAY [facility] Last Admin: 11/13/18 09:30 Dose: 40 mg Documented by: Sodium Chloride (Nacl 0.9% 1000 Ml) 1,000 mls @ 125 mls/hr IV DIRECT DEYA Stop: 11/14/18 02:59 Last Admin: 11/13/18 06:14 Dose: 125 mls/hr Documented by: Levofloxacin/Dextrose (Levaquin 750mg/150ml) 750 mg in 150 mls @ 100 mls/hr IV Q24HR [facility]; Protocol Stop: 11/16/18 09:59 Last Admin: 11/13/18 10:25 Dose: 100 mls/hr Documented by: Phytonadione 10 mg/ Sodium (Chloride) 51 mls @ 100 mls/hr IV Q24H [facility] Stop: 11/15/18 05:31 Last Admin: 11/13/18 05:00 Dose: 100 mls/hr Documented by: Ondansetron HCl (Zofran) 4 mg IV Q8H PRN PRN Reason: Nausea And Vomiting Sodium Chloride (Sodium Chloride Flush Syringe 10 Ml) 10 ml IV BID [facility] Last Admin: 11/13/18 10:47 Dose: Not Given Documented by: Sodium Chloride (Sodium Chloride Flush Syringe 10 Ml) 10 ml IV PRN PRN PRN Reason: LINE FLUSH Review of Systems Musculoskeletal: other (fell) Physical Examination - Vital Signs Vital Signs: Vital Signs Pulse Resp Pulse Ox 114 H 21 98 11/12/18 21:24 11/12/18 21:24 11/12/18 21:24 - Constitutional General appearance: comfortable - EENT EENT: Present: PERRL, mucous membranes moist - Respiratory Respiratory: Present: lungs clear - Cardiovascular Cardiovascular: Present: regular rate Extremities: Present: no peripheral edema bilatateraly - Gastrointestinal Gastrointestinal: Present: normoactive bowel sounds - Integumentary Integumentary: Present: normal - Neurologic Cranial nerve examination: PERRL, EOMI, face symmetric, tongue midline Speech examination: intact Motor examination - right side: 5/5: biceps, triceps, wrist flexion, wrist extension, special order jeweler, hip flexors, knee extensors, dorsiflexion, toe extension (EHL), plantarflexion Motor examination - left side: 5/5: biceps, triceps, wrist flexion, wrist extension, special order jeweler, hip flexors, knee extensors, dorsiflexion, toe extension (EHL), plantarflexion Detailed sensory examination: intact Reflex and gait examination: intact Reflexes: 1+: ankle, bicep, knee, tricep Results - Laboratory Findings CBC and BMP: 11/12/18 21:35 11/12/18 21:35 Abnormal Lab Findings: Abnormal Labs 11/12/18 11/12/18 11/12/18 21:35 21:35 21:35 RBC 2.69 L Hgb 8.2 L Hct 23.9 L MCHC 35 H RDW 16.9 H Lymph % (Auto) 4.9 L [place] % (Auto) 7.5 H Lymph # 0.5 L Seg Neutrophils % 87.4 H Seg Neutrophils # 8.1 H PT INR Sodium 131 L Potassium 3.1 L Chloride 97.0 L Creatinine 0.5 L Glucose 115 H Magnesium Iron TIBC Transferrin Total Bilirubin 2.00 H Direct Bilirubin AST 67 H ALT 90 H Troponin T 0.056 H 0.059 H Total Protein 5.4 L Albumin 2.8 L LDL Cholesterol Direct 46 L HDL Cholesterol 22 L Urine WBC (Auto) 11/12/18 11/12/18 11/12/18 21:35 21:35 22:40 RBC Hgb Hct MCHC RDW Lymph % (Auto) [place] % (Auto) Lymph # Seg Neutrophils % Seg Neutrophils # PT 16.9 H INR 1.41 H Sodium Potassium Chloride Creatinine Glucose Magnesium Iron TIBC Transferrin Total Bilirubin 2.00 H Direct Bilirubin 1.3 H AST 67 H ALT 92 H Troponin T Total Protein 5.3 L Albumin 2.8 L LDL Cholesterol Direct HDL Cholesterol Urine WBC (Auto) 10.0 H 11/13/18 11/13/18 11/13/18 00:33 02:35 03:30 RBC Hgb Hct MCHC RDW Lymph % (Auto) [place] % (Auto) Lymph # Seg Neutrophils % Seg Neutrophils # PT INR Sodium Potassium Chloride Creatinine Glucose Magnesium 0.90 L* Iron 9 L TIBC 114 L Transferrin 97 L Total Bilirubin Direct Bilirubin AST ALT Troponin T 0.071 H D 0.052 H D Total Protein Albumin LDL Cholesterol Direct HDL Cholesterol Urine WBC (Auto) 11/13/18 11/13/18 10:25 10:25 RBC Hgb Hct MCHC RDW Lymph % (Auto) [place] % (Auto) Lymph # Seg Neutrophils % Seg Neutrophils # PT INR Sodium Potassium Chloride Creatinine Glucose Magnesium 2.40 H Iron TIBC Transferrin Total Bilirubin Direct Bilirubin AST ALT Troponin T 0.037 H D Total Protein Albumin LDL Cholesterol Direct HDL Cholesterol Urine WBC (Auto) - Diagnostic Findings Additional findings: MR Brain no acute ischemia, 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 Pt with possible colon mass REcommend: MR Brain without reviewed, will order with for completeness EEG Continue care for all medical issues as you are d oing No driving for now POC discussed with pt at bedside
[2018-11-13] MEDS: TYLENOL PO PRN (20:18)
--- NOTE | 2018-11-13 22:54 | Event Note ---
Date: 11/13/18 [id number]
[2018-11-14] MEDS: SODIUM CHLORIDE FLUSH SYRINGE 10 ML IV SCH ×3 (04:39→21:04)
[2018-11-14 05:59] LABS: Basophils % (Auto) 0.3 % (0.0-1.8); Eosinophils % (Auto) 0.5 % (0.0-4.3); Hematocrit 22.1 % (30.3-42.9); Hemoglobin 7.5 gm/dl (10.1-14.3); Lymphocytes # (Auto) 0.7 K/mm3 (1.2-5.4); Lymphocytes % (Auto) 12.8 % (13.4-35.0); Mean Corpuscular HGB Conc 34 % (30-34); Mean Corpuscular Volume 90 fl (79-97); Monocytes # (Auto) 0.5 K/mm3 (0.0-0.8); Monocytes % (Auto) 8.1 % (0.0-7.3); Platelet Count 231 K/mm3 (140-440); Red Blood Count 2.45 M/mm3 (3.65-5.03); Red Cell Distribution Width 16.9 % (13.2-15.2)
[2018-11-14 06:04] LABS: INR 1.43 (0.87-1.13)
[2018-11-14] MEDS: TYLENOL PO PRN ×2 (06:09→21:03)
[2018-11-14] MEDS: VITAMIN K (ADULT ONLY) 10 MG in NACL 0.9% 50 ML IV SCH ×2 (06:12→13:49)
[2018-11-14 06:21] LABS: Erythrocyte Sedimentation Rate 7 mm/Hr (0-20)
[2018-11-14 06:30] LABS: Alanine Aminotransferase 66 units/L (7-56); Albumin 2.2 g/dL (3.9-5); BUN/Creatinine Ratio 12; Bilirubin,Direct 0.8 mg/dL (0-0.2); Blood Urea Nitrogen 6 mg/dL (7-17); Calcium 8.1 mg/dL (8.4-10.2); Hemolysis Index 9
--- NOTE | 2018-11-14 06:36 | Consultation ---
REFERRED BY: Dr. Gambino REASON FOR CONSULTATION: Colon mass. HISTORY OF PRESENT ILLNESS: I saw the patient, an 78 years old female, in the medical floor. She lives alone. As per the information, the patient's daughter was trying to reach her and she could not get it, so when she went to that place, she was found confused on the floor. Recently, she was at [facility], where she was found to be anemic and she was given transfusion. EGD was done, which was negative. There was a plan for Hematology followup as an outpatient. The patient is very concerned about her care. At this time, her sister helps. Her daughters are present nearby, but she takes their help less often. After admission, radiology testing showed a colon mass, hepatic flexure nodular lesion medial to the hepatic flexure, most likely representing lymphadenopathy, mass lesion in the cul-de-sac. MRI brain, no evidence of infarct or hemorrhage, atrophy present. At this time, no headache, no visual disturbances, no ear discharge, no chest pain, no palpitations. No seizure or syncope. History of being found on the floor at present. The patient does not remember the sequence, if loss of consciousness was present. PAST SURGICAL HISTORY: Nil significant. SOCIAL HISTORY: Lives alone. FAMILY HISTORY: Not available. ALLERGIES: TO IBUPROFEN, PENICILLIN AND CODEINE. MEDICATIONS: During this admission, medications include some Tylenol, aspirin, statin, Lovenox, Levaquin. PHYSICAL EXAMINATION: VITAL SIGNS: Temperature 98, pulse 84, respirations 18, BP 97/40. HEENT: Pallor present, no icterus. NECK: No neck lymph nodes. HEART: S1, S2. LUNGS: Clear to auscultation anteriorly. ABDOMEN: Soft. No rebound. EXTREMITIES: No calf tenderness. NEUROLOGIC: Alert, awake. LABORATORY DATA: White cells 9, hemoglobin 8, MCV 89, platelet 261. Potassium 3.1, creatinine 0.5, calcium 8.9. Serum iron 9, ferritin 291, bilirubin 2, AST 67, B12 of 563. Folate 15. RADIOLOGY: CT shows hepatic flexure mass with possible lymph node. Also, there is a mass in the pelvic cul-de-sac. ASSESSMENT AND PLAN: 1. Normocytic anemia with low iron, likely secondary to bleeding issue. 2. History of hepatic flexure mass. We will await tissue diagnosis. 3. Lymph nodes present radiologically. 4. Pelvic cul-de-sac mass. 5. History of loss of consciousness. MRI of the brain does not mention mets. 6. History of lung lesions. 7. Slightly elevated PT, PTT. 8. Intravenous iron support. At this time, radiologically, this appears to be stage 4 colon cancer. We will await tissue diagnosis. JOB# [id number] NM/NTS
[2018-11-14] MEDS ORDERED: K-DUR PO ONE (06:44)
--- NOTE | 2018-11-14 07:26 | Hem/Onc Progress Note ---
Assessment and Plan 1. Normocytic anemia with low iron, likely secondary to bleeding issue. 2. History of hepatic flexure mass. We will await tissue diagnosis. 3. Lymph nodes present radiologically. 4. Pelvic cul-de-sac mass. 5. History of loss of consciousness. MRI of the brain does not mention mets. 6. mention of lung lesions. 7. Slightly elevated PT, PTT. 8. Intravenous iron support. At this time, radiologically, this appears to be stage 4 colon cancer. We will await tissue diagnosis. d/w dr Love - ? pelvic mass bx - IR eval clinically this looks colon neoplasm - however pelvic mass is peculiar we have option to do colonoscopic bx - Patient Problems (1) Colonic mass Current Visit: Yes Status: Acute Subjective Date of service: 11/14/18 Principal diagnosis: colon mass Interval history: no abdo pain Objective - Constitutional Vitals: Last Vital Signs Temp 98.8 F 11/14/18 04:36 Pulse 76 11/14/18 06:22 Resp 16 11/14/18 04:36 BP 105/55 11/14/18 04:36 Pulse Ox 99 11/14/18 03:00 Pain Intensity (0-10): denies any pain General appearance: no acute distress Performance status: 4-completely disabled - EENT Eyes: EOM intact ENT: hearing intact, clear oral mucosa Lymph node exam: negative cervical - Neck Neck: normal ROM - Respiratory Respiratory effort: Positive: normal Respiratory: bilateral: CTA - Cardiovascular Heart Sounds: Present: S1 & S2 Extremities: normal temperature - Gastrointestinal General gastrointestinal: Present: soft Rectal Exam: deferred - Genitourinary Female genitourinary: Present: deferred - Integumentary Integumentary: warm - Musculoskeletal Musculoskeletal: strength equal bilaterally - Neurologic Neurologic: moves all extremities - Labs Lab Results: Laboratory Results - last 24 hr 11/13/18 11/13/18 11/13/18 10:25 10:25 Unknown WBC RBC Hgb Hct MCV MCH MCHC RDW Plt Count Lymph % (Auto) [place] % (Auto) Eos % (Auto) Baso % (Auto) Lymph # [place] # Eos # Baso # Seg Neutrophils % Seg Neutrophils # ESR PT INR Sodium Potassium Chloride Carbon Dioxide Anion Gap BUN Creatinine Estimated GFR BUN/Creatinine Ratio Glucose Calcium Magnesium 2.40 H Total Bilirubin Direct Bilirubin Indirect Bilirubin AST ALT Alkaline Phosphatase Troponin T 0.037 H D Total Protein Albumin Albumin/Globulin Ratio Urine Opiates Screen Presumptive negative Urine Methadone Screen Presumptive negative Ur Barbiturates Screen Presumptive negative Ur Phencyclidine Scrn Presumptive negative Ur Amphetamines Screen Presumptive negative U Benzodiazepines Scrn Presumptive negative Urine Cocaine Screen Presumptive negative U Marijuana (THC) Screen Presumptive negative Drugs of Abuse Note Disclamer 11/14/18 11/14/18 11/14/18 05:04 05:04 05:04 WBC 5.6 RBC 2.45 L Hgb 7.5 L Hct 22.1 L MCV 90 MCH 31 MCHC 34 RDW 16.9 H Plt Count 231 Lymph % (Auto) 12.8 L [place] % (Auto) 8.1 H Eos % (Auto) 0.5 Baso % (Auto) 0.3 Lymph # 0.7 L [place] # 0.5 Eos # 0.0 Baso # 0.0 Seg Neutrophils % 78.3 H Seg Neutrophils # 4.4 ESR 7 PT 17.1 H INR 1.43 H Sodium 136 L Potassium 2.6 L* Chloride 104.2 Carbon Dioxide 20 L Anion Gap 14 BUN 6 L Creatinine 0.5 L Estimated GFR > 60 BUN/Creatinine Ratio 12 Glucose 94 Calcium 8.1 L Magnesium Total Bilirubin 1.30 H Direct Bilirubin 0.8 H Indirect Bilirubin 0.5 AST 46 H ALT 66 H Alkaline Phosphatase 65 Troponin T Total Protein 4.8 L Albumin 2.2 L Albumin/Globulin Ratio 0.8 Urine Opiates Screen Urine Methadone Screen Ur Barbiturates Screen Ur Phencyclidine Scrn Ur Amphetamines Screen U Benzodiazepines Scrn Urine Cocaine Screen U Marijuana (THC) Screen Drugs of Abuse Note Medications & Allergies - Medications Allergies/Adverse Reactions: Allergies ibuprofen Allergy (Verified 11/12/18 21:44) Unknown Penicillins Allergy (Verified 11/12/18 21:43) Hives codeine Adverse Reaction (Verified 11/12/18 21:44) Nausea Home Medications: Home Medications Medication Instructions Recorded Confirmed Last Taken Type Atorvastatin [Lipitor Tab] 40 mg PO DAILY 11/13/18 11/13/18 11/12/18 09:00 History Fenofibrate [Tricor] 145 mg PO QDAY 11/13/18 11/13/18 11/12/18 09:00 History Pantoprazole [Protonix] 40 mg PO QDAY 11/13/18 11/13/18 11/12/18 08:00 History Active Medications: Generic Name Dose Route Start Last Admin Trade Name Juaquinq PRN Reason Stop Dose Admin Acetaminophen 650 mg 11/13/18 02:49 11/14/18 06:09 Tylenol PO 650 mg Q4H PRN Administration Pain MILD(1-3)/Fever >100.5/CLEMENT Aspirin 325 mg 11/13/18 10:00 11/13/18 09:31 Aspirin PO 325 mg QDAY DEYA Administration Atorvastatin Calcium 40 mg 11/13/18 22:00 11/13/18 21:21 Lipitor PO 40 mg QHS DEYA Administration Enoxaparin Sodium 40 mg 11/13/18 10:00 11/13/18 09:30 Lovenox SUB-Q 40 mg QDAY DEYA Administration Levofloxacin/Dextrose 750 mg in 150 mls @ 100 mls/hr 11/13/18 10:00 11/13/18 10:25 Levaquin 750mg/150ml IV 11/16/18 09:59 100 mls/hr Q24HR DEYA Administration Protocol Phytonadione 10 mg/ Sodium 51 mls @ 100 mls/hr 11/13/18 05:00 11/14/18 06:12 Chloride IV 11/15/18 05:31 Not Given Q24H DEYA Ondansetron HCl 4 mg 11/13/18 02:49 Zofran IV Q8H PRN Nausea And Vomiting Sodium Chloride 10 ml 11/13/18 10:00 11/14/18 04:39 Sodium Chloride Flush Syringe 10 Ml IV Not Given BID DEYA Sodium Chloride 10 ml 11/13/18 02:49 Sodium Chloride Flush Syringe 10 Ml IV PRN PRN LINE FLUSH
[2018-11-14] MEDS ORDERED: KCL 20MEQ/100ML 20 MEQ/100 ML BAG IV SCH (08:00)
--- NOTE | 2018-11-14 09:00 | Event Note ---
Date: 11/14/[address] scan. There is a mass in the pelvis in the region of the cervix. It could also be arising from the uterus based on patient's hysterectomy status. It is invading the bladder and possibly the adjacent colon. Recommend VENTILATING EQUIPMENT INSTALLER evaluation. Based on VENTILATING EQUIPMENT INSTALLER physical exam, percutaneous biopsy can be decided upon.
--- NOTE | 2018-11-14 09:11 | Consultation ---
History of Present Illness - Reason for Consult Consult date: 11/14/18 Pelvic mass - History of Present Illness 78-year-old female who Lives by herself. Per her daughter, her daughter was calling her on unable to reach her by phone, had also been went to her place of residence where she found her on the floor confused, she was laying on the floor beside her bed. The daughter feels that she probably fell from the bed or slipped off from the bed. She was recently at [facility] where she was treated for anemia requiring 2 units of blood. She also had EGD which was negative. She was planned for hematology follow-up as an outpatient. She reports she has had a hysterectomy and bilateral oopherectomy and cholecystectomy. She also reports a colonoscopy 1-2 years ago which was nega tive. She has back pain, neck pain and head pain but reports chronic pelvic pain for 6 months. Past History Past Medical History: hyperlipidemia, stroke Past Surgical History: cholecystectomy, hysterectomy Social history: Lives alone Family history: hypertension Medications and Allergies Allergies Allergy/AdvReac Type Severity Reaction Status Date / Time ibuprofen Allergy Unknown Verified 11/12/18 21:44 Penicillins Allergy Hives Verified 11/12/18 21:43 codeine AdvReac Nausea Verified 11/12/18 21:44 Home Medications Medication Instructions Recorded Confirmed Last Taken Type Atorvastatin [Lipitor Tab] 40 mg PO DAILY 11/13/18 11/13/18 11/12/18 09:00 History Fenofibrate [Tricor] 145 mg PO QDAY 11/13/18 11/13/18 11/12/18 09:00 History Pantoprazole [Protonix] 40 mg PO QDAY 11/13/18 11/13/18 11/12/18 08:00 History Active Meds: Active Medications Acetaminophen (Tylenol) 650 mg PO Q4H PRN PRN Reason: Pain MILD(1-3)/Fever >100.5/CLEMENT Last Admin: 11/14/18 06:09 Dose: 650 mg Documented by: Aspirin (Aspirin) 325 mg PO QDAY [facility] Last Admin: 11/13/18 09:31 Dose: 325 mg Documented by: Atorvastatin Calcium (Lipitor) 40 mg PO QHS [facility] Last Admin: 11/13/18 21:21 Dose: 40 mg Documented by: Enoxaparin Sodium (Lovenox) 40 mg SUB-Q QDAY [facility] Last Admin: 11/13/18 09:30 Dose: 40 mg Documented by: Levofloxacin/Dextrose (Levaquin 750mg/150ml) 750 mg in 150 mls @ 100 mls/hr IV Q24HR [facility]; Protocol Stop: 11/16/18 09:59 Last Admin: 11/13/18 10:25 Dose: 100 mls/hr Documented by: Phytonadione 10 mg/ Sodium (Chloride) 51 mls @ 100 mls/hr IV Q24H [facility] Stop: 11/15/18 05:31 Last Admin: 11/14/18 06:12 Dose: Not Given Documented by: Ondansetron HCl (Zofran) 4 mg IV Q8H PRN PRN Reason: Nausea And Vomiting Sodium Chloride (Sodium Chloride Flush Syringe 10 Ml) 10 ml IV BID [facility] Last Admin: 11/14/18 04:39 Dose: Not Given Documented by: Sodium Chloride (Sodium Chloride Flush Syringe 10 Ml) 10 ml IV PRN PRN PRN Reason: LINE FLUSH Review of Systems All systems: negative (see HPI) Exam - Constitutional Vitals: Temp Pulse Resp BP Pulse Ox 98.7 F 68 16 107/51 98 11/14/18 07:22 11/14/18 07:22 11/14/18 07:22 11/14/18 07:22 11/14/18 07:22 General appearance: Present: mild distress - EENT Eyes: Present: EOM intact ENT: hearing intact - Respiratory Respiratory effort: normal - Abdominal General gastrointestinal: Present: tender (pelvic pain) - Psychiatric Psychiatric: appropriate mood/affect, cooperative Results - Labs CBC & Chem 7: 11/14/18 05:04 11/14/18 05:04 Labs: Abnormal lab results 11/13/18 11/13/18 11/14/18 Range/Units 10:25 10:25 05:04 RBC 2.45 L (3.65-5.03) M/mm3 Hgb 7.5 L (10.1-14.3) gm/dl Hct 22.1 L (30.3-42.9) % RDW 16.9 H (13.2-15.2) % Lymph % (Auto) 12.8 L (13.4-35.0) % [place] % (Auto) 8.1 H (0.0-7.3) % Lymph # 0.7 L (1.2-5.4) K/mm3 Seg Neutrophils % 78.3 H (40.0-70.0) % PT (12.2-14.9) Sec. INR (0.87-1.13) Sodium (137-145) mmol/L Potassium (3.6-5.0) mmol/L Carbon Dioxide (22-30) mmol/L BUN (7-17) mg/dL Creatinine (0.7-1.2) mg/dL Calcium (8.4-10.2) mg/dL Magnesium 2.40 H (1.7-2.3) mg/dL Total Bilirubin (0.1-1.2) mg/dL Direct Bilirubin (0-0.2) mg/dL AST (5-40) units/L ALT (7-56) units/L Troponin T 0.037 H D (0.00-0.029) ng/mL Total Protein (6.3-8.2) g/dL Albumin (3.9-5) g/dL 11/14/18 11/14/18 Range/Units 05:04 05:04 RBC (3.65-5.03) M/mm3 Hgb (10.1-14.3) gm/dl Hct (30.3-42.9) % RDW (13.2-15.2) % Lymph % (Auto) (13.4-35.0) % [place] % (Auto) (0.0-7.3) % Lymph # (1.2-5.4) K/mm3 Seg Neutrophils % (40.0-70.0) % PT 17.1 H (12.2-14.9) Sec. INR 1.43 H (0.87-1.13) Sodium 136 L (137-145) mmol/L Potassium 2.6 L* (3.6-5.0) mmol/L Carbon Dioxide 20 L (22-30) mmol/L BUN 6 L (7-17) mg/dL Creatinine 0.5 L (0.7-1.2) mg/dL Calcium 8.1 L (8.4-10.2) mg/dL Magnesium (1.7-2.3) mg/dL Total Bilirubin 1.30 H (0.1-1.2) mg/dL Direct Bilirubin 0.8 H (0-0.2) mg/dL AST 46 H (5-40) units/L ALT 66 H (7-56) units/L Troponin T (0.00-0.029) ng/mL Total Protein 4.8 L (6.3-8.2) g/dL Albumin 2.2 L (3.9-5) g/dL Assessment and Plan 78 year old female status post hysterectomy and BSO with multiple possible masses. Hepatic flexure is concerning with bowel thickening adjacent lymph nodes for underlying colon cancer. Recommend GI consult. 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 Pelvic mass noted in the vicinity of the cervix which is invading the bladder and possibly invading the adjacent sigmoid colon. Status post hysterectomy and BSO. Recommend CLINICAL TECHNOLOGIST consult. Based on CLINICAL TECHNOLOGIST exam, percutaneous biopsy may be performed.
[2018-11-14] MEDS: ASPIRIN PO SCH (09:20)
[2018-11-14] MEDS: LEVAQUIN 750MG/150ML 750 MG/150 ML BAG IV SCH (09:20)
[2018-11-14] MEDS: LOVENOX SUB-Q SCH (09:20)
--- NOTE | 2018-11-14 09:54 | Progress Note ---
Assessment and Plan Obtain echo. Replete electrolytes. Cont observation on telemetry. Further recs to follow per hospital course. The patient has been seen in conjunction with Dr. Dayana العلي who agrees with the assessment and plan of care. - Patient Problems (1) Syncope Current Visit: Yes Status: Suspected (2) Altered mental status Current Visit: Yes Status: Acute (3) Colonic mass Current Visit: Yes Status: Acute (4) Elevated troponin Current Visit: Yes Status: Acute (5) Anemia Current Visit: Yes Status: Acute (6) Hypokalemia Current Visit: Yes Status: Acute (7) Hypomagnesemia Current Visit: Yes Status: Acute (8) Elevated LFTs Current Visit: Yes Status: Acute Subjective Date of service: 11/14/18 Principal diagnosis: ? syncope; colon mass Interval history: pt resting in bed, states she is feeling ok. no current complaints. Objective Last Vital Signs Temp 98.7 F 11/14/18 07:22 Pulse 68 11/14/18 07:22 Resp 16 11/14/18 07:22 BP 107/51 11/14/18 07:22 Pulse Ox 98 11/14/18 07:22 - Physical Examination General: No Apparent Distress HEENT: Positive: PERRL, Normocephaly, Mucus Membranes Moist Neck: Positive: neck supple, trachea midline Cardiac: Positive: Reg Rate and Rhythm, S1/S2 Lungs: Positive: Decreased Breath Sounds Neuro: Positive: Grossly Intact Abdomen: Negative: Tender Skin: Negative: Rash Musculoskeletal: No Pain Extremities: Absent: edema - Labs and Meds Cardiac Enzymes 11/14/18 Range/Units 05:04 AST 46 H (5-40) units/L Coagulation 11/14/18 Range/Units 05:04 PT 17.1 H (12.2-14.9) Sec. INR 1.43 H (0.87-1.13) CBC 11/14/18 Range/Units 05:04 WBC 5.6 (4.5-11.0) K/mm3 RBC 2.45 L (3.65-5.03) M/mm3 Hgb 7.5 L (10.1-14.3) gm/dl Hct 22.1 L (30.3-42.9) % Plt Count 231 (140-440) K/mm3 Lymph # 0.7 L (1.2-5.4) K/mm3 [place] # 0.5 (0.0-0.8) K/mm3 Eos # 0.0 (0.0-0.4) K/mm3 Baso # 0.0 (0.0-0.1) K/mm3 Comprehensive Metabolic Panel 11/14/18 Range/Units 05:04 Sodium 136 L (137-145) mmol/L Potassium 2.6 L* (3.6-5.0) mmol/L Chloride 104.2 (98-107) mmol/L Carbon Dioxide 20 L (22-30) mmol/L BUN 6 L (7-17) mg/dL Creatinine 0.5 L (0.7-1.2) mg/dL Glucose 94 (65-100) mg/dL Calcium 8.1 L (8.4-10.2) mg/dL Direct Bilirubin 0.8 H (0-0.2) mg/dL Indirect Bilirubin 0.5 mg/dL AST 46 H (5-40) units/L ALT 66 H (7-56) units/L Alkaline Phosphatase 65 (35-129) units/L Total Protein 4.8 L (6.3-8.2) g/dL Albumin 2.2 L (3.9-5) g/dL - Imaging and Cardiology EKG: report reviewed, image reviewed Echo: pending - EKG Sinus rhythms and dysrhythmias: sinus tachycardia
[2018-11-14] MEDS: K-DUR PO SCH ×2 (13:48→17:03)
--- NOTE | 2018-11-14 13:51 | Magnetic Resonance Report ---
MR BRAIN WITH CONTRAST History: LOC, possible colon malignancy Findings: Axial and coronal T1 postcontrast images of the brain were obtained and compared to the noncontrast MR brain performed 11/13/18. The addition of IV gadolinium does not demonstrate any areas of abnormal enhancement. Impression: No evidence for metastatic disease to the brain.
--- NOTE | 2018-11-14 16:05 | Progress Note ---
Assessment and Plan Assessment and plan: Assessment and plan: 78-year-old woman who was found on the floor in her home confused pelvic US; Heterogeneous solid lesion behind the bladder measuring 8.6 x 5.3 x 7.8 cm. Whether this is neoplastic or inflammatory is uncertain. Free fluid not seen. Hematology oncology consulted. SASH REPAIRER consulted for possible biopsy of the mass. Ct A/p; Findings are suspicious for colonic carcinoma involving the hepatic flexure. Nodular lesions medial to the hepatic flexure most likely represent lymphadenopathy. A large mass lesion in the cul-de-sac can be further evaluated using pelvic ultrasound. Small hiatal hernia 7 mm nodule in the visualized right lower lobe. A metastatic deposit is suspected. Mild degree ascites. Interventional radiology consulted for biopsy and recommended to consult SASH REPAIRER for biopsy of the pelvic mass cxr; No acute cardiopulmonary abnormality. CTH; 1. Lacunar infarcts in the subcortical white matter of the frontal lobes bilaterally and right basal ganglia, some of indeterminate age. If there is a clinical suspicion of acute cerebral ischemia and if there is no clinical contraindication. 2. No evidence of intracranial hemorrhage or mass effect. 3. Left parietal scalp soft tissue swelling. 4. Deformity medial wall right orbit which may represent sequela of previous medial orbital wall fracture or may be congenital in nature. There is no evidence of acute change in the adjacent ethmoid sinus to suggest that this is an acute fracture. MRI of the brain is negative. Colonic mass, mass behind bladder and lung lesion Strongly suspicious for malignancy, hematology/oncology consulted acute metabolic encephalopathy, ? CVA - MRI is negative - Neurology consult appreciated UTI - Continue Levaquin Coagulopathy Elevated PT/INR, treated vitamin K repeat levels daily, check ammonia level Normocytic Anemia Has had recent EGD at [facility], status post 2 units of blood recently at [facility], hemoglobin stable, continue to monitor -Check folate and B12 and iron panel Hypokalemia - repleted, check BMP Hyponatremia - Resolved with normal saline Abnormal troponin - Cardiology consulted and recommended medical management DVT prophylaxis with Lovenox History Interval history: Patient was seen and evaluated this morning, patient was alert and oriented. Patient didn't have any complaints. Hospitalist Physical - Physical exam Narrative exam: Not in cardiopulmonary distress. The patient appeared well nourished and normally developed. Vital signs as documented. Head exam is unremarkable. No scleral icterus . Neck is without jugular venous distension, thyromegaly, or carotid bruits. Lungs are clear to auscultation. Cardiac exam reveals regular rate and Rhythm. Abdominal exam reveals normal bowel sounds. Extremities are nonedematous and both femoral and pedal pulses are normal. IS/IT PROJECT MANAGER: Alert and oriented 3. No focal weakness. - Constitutional Vitals: Temp Pulse Resp BP Pulse Ox 98.7 F 80 16 107/51 98 11/14/18 07:22 11/14/18 10:00 11/14/18 10:00 11/14/18 07:22 11/14/18 10:00 General appearance: Present: mild distress Results - Labs CBC & Chem 7: 11/14/18 05:04 11/14/18 05:04 Labs: Laboratory Last Values WBC 5.6 K/mm3 (4.5-11.0) 11/14/18 05:04 RBC 2.45 M/mm3 (3.65-5.03) L 11/14/18 05:04 Hgb 7.5 gm/dl (10.1-14.3) L 11/14/18 05:04 Hct 22.1 % (30.3-42.9) L 11/14/18 05:04 MCV 90 fl (79-97) 11/14/18 05:04 MCH 31 pg (28-32) 11/14/18 05:04 MCHC 34 % (30-34) 11/14/18 05:04 RDW 16.9 % (13.2-15.2) H 11/14/18 05:04 Plt Count 231 K/mm3 (140-440) 11/14/18 05:04 Lymph % (Auto) 12.8 % (13.4-35.0) L 11/14/18 05:04 [place] % (Auto) 8.1 % (0.0-7.3) H 11/14/18 05:04 Eos % (Auto) 0.5 % (0.0-4.3) 11/14/18 05:04 Baso % (Auto) 0.3 % (0.0-1.8) 11/14/18 05:04 Lymph # 0.7 K/mm3 (1.2-5.4) L 11/14/18 05:04 [place] # 0.5 K/mm3 (0.0-0.8) 11/14/18 05:04 Eos # 0.0 K/mm3 (0.0-0.4) 11/14/18 05:04 Baso # 0.0 K/mm3 (0.0-0.1) 11/14/18 05:04 Seg Neutrophils % 78.3 % (40.0-70.0) H 11/14/18 05:04 Seg Neutrophils # 4.4 K/mm3 (1.8-7.7) 11/14/18 05:04 ESR 7 mm/Hr (0-20) 11/14/18 05:04 PT 17.1 Sec. (12.2-14.9) H 11/14/18 05:04 INR 1.43 (0.87-1.13) H 11/14/18 05:04 APTT 34.8 Sec. (24.2-36.6) 11/12/18 21:35 Sodium 136 mmol/L (137-145) L 11/14/18 05:04 Potassium 2.6 mmol/L (3.6-5.0) L* 11/14/18 05:04 Chloride 104.2 mmol/L (98-107) 11/14/18 05:04 Carbon Dioxide 20 mmol/L (22-30) L 11/14/18 05:04 14 mmol/L 11/14/18 05:04 BUN 6 mg/dL (7-17) L 11/14/18 05:04 0.5 mg/dL (0.7-1.2) L 11/14/18 05:04 Estimated GFR > 60 ml/min 11/14/18 05:04 12 % 11/14/18 05:04 Glucose 94 mg/dL (65-100) 11/14/18 05:04 < 4.2 % (4-6) 11/14/18 05:04 Lactic Acid 1.00 mmol/L (0.7-2.0) 11/13/18 00:22 Calcium 8.1 mg/dL (8.4-10.2) L 11/14/18 05:04 Magnesium 2.40 mg/dL (1.7-2.3) H 11/13/18 10:25 Iron 9 ug/dL (37-170) L 11/13/18 03:30 TIBC 114 mcg/dL (250-450) L 11/13/18 03:30 % Saturation 7.89 % 11/13/18 03:30 97 mg/dl (192-382) L 11/13/18 03:30 291.3 ng/mL (13.0-400.0) 11/13/18 03:30 1.30 mg/dL (0.1-1.2) H 11/14/18 05:04 0.8 mg/dL (0-0.2) H 11/14/18 05:04 0.5 mg/dL 11/14/18 05:04 AST 46 units/L (5-40) H 11/14/18 05:04 ALT 66 units/L (7-56) H 11/14/18 05:04 65 units/L (35-129) 11/14/18 05:04 26.0 umol/L (25-60) 11/13/18 03:30 0.037 ng/mL (0.00-0.029) H D 11/13/18 10:25 4.8 g/dL (6.3-8.2) L 11/14/18 05:04 2.2 g/dL (3.9-5) L 11/14/18 05:04 0.8 % 11/14/18 05:04 Triglycerides 93 mg/dL (2-149) 11/12/18 21:35 Cholesterol 88 mg/dL (50-199) 11/12/18 21:35 46 mg/dL (50-130) L 11/12/18 21:35 22 mg/dL (40-59) L 11/12/18 21:35 4.00 % 11/12/18 21:35 Vitamin B12 563.1 pg/mL (211-911) 11/13/18 03:30 15.19 ng/mL (7.3-26.0) 11/13/18 03:30 Yellow (Yellow) 11/12/18 22:40 Clear (Clear) 11/12/18 22:40 6.0 (5.0-7.0) 11/12/18 22:40 Ur Specific [place] 1.011 (1.003-1.030) 11/12/18 22:40 <15 mg/dl mg/dL (Negative) 11/12/18 22:40 Neg mg/dL (Negative) 11/12/18 22:40 Neg mg/dL (Negative) 11/12/18 22:40 Mod (Negative) 11/12/18 22:40 Neg (Negative) 11/12/18 22:40 Neg (Negative) 11/12/18 22:40 2.0 mg/dL (<2.0) 11/12/18 22:40 Ur Leukocyte Esterase Tr (Negative) 11/12/18 22:40 10.0 /HPF (0.0-6.0) H 11/12/18 22:40 32.0 /HPF (0.0-6.0) 11/12/18 22:40 Presumptive negative 11/13/18 Unknown Presumptive negative 11/13/18 Unknown Ur Barbiturates Screen Presumptive negative 11/13/18 Unknown Ur Phencyclidine Scrn Presumptive negative 11/13/18 Unknown Ur Amphetamines Screen Presumptive negative 11/13/18 Unknown U Benzodiazepines Scrn Presumptive negative 11/13/18 Unknown Presumptive negative 11/13/18 Unknown U Marijuana (THC) Screen Presumptive negative 11/13/18 Unknown Disclamer 11/13/18 Unknown Blood Type O POSITIVE 11/12/18 21:35 Antibody Screen Negative 11/12/18 21:35 Active Medications - Current Medications Current Medications: Generic Name Dose Route Start Last Admin Trade Name Freq PRN Reason Stop Dose Admin Acetaminophen 650 mg 11/13/18 02:49 11/14/18 06:09 Tylenol PO 650 mg Q4H PRN Administration Pain MILD(1-3)/Fever >100.5/CLEMENT Aspirin 325 mg 11/13/18 10:00 11/14/18 09:20 Aspirin PO 325 mg QDAY DEYA Administration Atorvastatin Calcium 40 mg 11/13/18 22:00 11/13/18 21:21 Lipitor PO 40 mg QHS DEYA Administration Enoxaparin Sodium 40 mg 11/13/18 10:00 11/14/18 09:20 Lovenox SUB-Q 40 mg QDAY DEYA Administration Levofloxacin/Dextrose 750 mg in 150 mls @ 100 mls/hr 11/13/18 10:00 11/14/18 09:20 Levaquin 750mg/150ml IV 11/16/18 09:59 100 mls/hr Q24HR DEYA Administration Protocol Phytonadione 10 mg/ Sodium 51 mls @ 100 mls/hr 11/13/18 05:00 11/14/18 13:49 Chloride IV 11/15/18 05:31 100 mls/hr Q24H DEYA Administration Ondansetron HCl 4 mg 11/13/18 02:49 Zofran IV Q8H PRN Nausea And Vomiting Potassium Chloride 40 meq 11/14/18 12:00 11/14/18 13:48 K-Dur PO 11/14/18 16:01 40 meq Q4H DEYA Administration Sodium Chloride 10 ml 11/13/18 10:00 11/14/18 09:38 Sodium Chloride Flush Syringe 10 Ml IV Not Given BID DEYA Sodium Chloride 10 ml 11/13/18 02:49 Sodium Chloride Flush Syringe 10 Ml IV PRN PRN LINE FLUSH Nutrition/Malnutrition Assess - Dietary Evaluation Nutrition/Malnutrition Findings: Nutrition Notes Start: 11/14/18 15:29 Freq: Status: Active Protocol: Document 11/14/18 15:29 RM (Rec: 11/14/18 15:35 RM [id number]) Nutrition Notes Need for Assessment generated from: Low BMI Initial or Follow up Assessment Other Pertinent Diagnosis ? CVA, UTI, Acute metabolic encephalopathy Current Diet Cardiac w/Ensure Enlive vanilla Labs/Tests Reviewed Pertinent Medications Reviewed Height 5 ft 7 in Weight 51.3 kg [place] Body Weight (kg) 61.36 BMI 17.6 Subjective/Other Information Screened for low BMI. Pt not in room at time of visit. Per tech pt ate 50% of breakfast but unsure how much pt drank of Ensure Enlive. Percent of energy/protein needs met: 69%/67% Burn Absent Trauma Absent #1 Nutrition Diagnosis Inadequate oral intake Etiology acute metabolic encephalopathy , ? CVA As Evidenced by Signs and Symptoms pt tech statement that pt ate 50% of breakfast, BMI 17.7 Is patient on ventilator? No Is Patient Ambulatory and/or Out of Bed No REE-([facility]-confined to bed) 1225.812 Kcal/Kg value to use for calculation 30 Approximate Energy Requirements Using 1539 kcal/Kg Calculation Used for Recommendations Kcal/kg Additional Notes Protein Needs: 62-77g (1.2-1. 5g/kg) Fluid Needs: 1 ml/kcal Nutrition Intervention Change Diet Order: Continue current Add Supplement/Snack (indicate name/kcal Ensure Enlive 1 daily /protein ) Provides kCal: 350 Provides Protein (gm) 20 Goal #1 Meet at least 75% of calorie and protein needs via PO and ONS intakes Goal #2 Wt gain/maintenance Anticipated Discharge Needs: Cardiac diet Follow-Up By: 11/18/18 Additional Comments Follow for malnutrition assessment, PO and ONS intakes
--- NOTE | 2018-11-14 22:34 | Consultation ---
History of Present Illness Consult date: 11/14/18 Reason for consult: pelvic mass History of present illness: This is a very pleasant 78 year-old female who presented after being found on the floor at her home by her daughter and noted to have confusion. Her evaluation revealed a an ~9cm mass in the cul- de-sac behind the bladder. She gives a history of intermittent vaginal spotting that started several months ago. She states she had a "total" hysterectomy over 20 years ago but does not remember the indication. She unsure if her ovaries were removed. She also gives a history of surgery for urinary incontinence in which mesh was used and she is being evaluated for erosion of the the mesh by Dr. Johana Skaggs. Past History Past Medical History: other (see hospitalist history) Past Surgical History: cholecystectomy, hysterectomy SOW MANAGER History: denies: abnormal PAP smear (however she has not had a pap smear for "several" years) - Obstetrical History Para: 4 Medications and Allergies Allergies Allergy/AdvReac Type Severity Reaction Status Date / Time ibuprofen Allergy Unknown Verified 11/12/18 21:44 Penicillins Allergy Hives Verified 11/12/18 21:43 codeine AdvReac Nausea Verified 11/12/18 21:44 Home Medications Medication Instructions Recorded Confirmed Last Taken Type Atorvastatin [Lipitor Tab] 40 mg PO DAILY 11/13/18 11/13/18 11/12/18 09:00 History Fenofibrate [Tricor] 145 mg PO QDAY 11/13/18 11/13/18 11/12/18 09:00 History Pantoprazole [Protonix] 40 mg PO QDAY 11/13/18 11/13/18 11/12/18 08:00 History Active Meds: Active Medications Acetaminophen (Tylenol) 650 mg PO Q4H PRN PRN Reason: Pain MILD(1-3)/Fever >100.5/CLEMENT Last Admin: 11/14/18 21:03 Dose: 650 mg Documented by: Aspirin (Aspirin) 325 mg PO QDAY [facility] Last Admin: 11/14/18 09:20 Dose: 325 mg Documented by: Atorvastatin Calcium (Lipitor) 40 mg PO QHS [facility] Last Admin: 11/14/18 21:03 Dose: 40 mg Documented by: Enoxaparin Sodium (Lovenox) 40 mg SUB-Q QDAY [facility] Last Admin: 11/14/18 09:20 Dose: 40 mg Documented by: Levofloxacin/Dextrose (Levaquin 750mg/150ml) 750 mg in 150 mls @ 100 mls/hr IV Q24HR [facility]; Protocol Stop: 11/16/18 09:59 Last Admin: 11/14/18 09:20 Dose: 100 mls/hr Documented by: Phytonadione 10 mg/ Sodium (Chloride) 51 mls @ 100 mls/hr IV Q24H [facility] Stop: 11/15/18 05:31 Last Admin: 11/14/18 13:49 Dose: 100 mls/hr Documented by: Ondansetron HCl (Zofran) 4 mg IV Q8H PRN PRN Reason: Nausea And Vomiting Sodium Chloride (Sodium Chloride Flush Syringe 10 Ml) 10 ml IV BID [facility] Last Admin: 11/14/18 21:04 Dose: 10 ml Documented by: Sodium Chloride (Sodium Chloride Flush Syringe 10 Ml) 10 ml IV PRN PRN PRN Reason: LINE FLUSH - Vital Signs Vital signs: Vital Signs Pulse Resp Pulse Ox 114 H 21 98 11/12/18 21:24 11/12/18 21:24 11/12/18 21:24 Temp Pulse Resp BP Pulse Ox 97.9 F 79 18 109/60 100 11/14/18 19:36 11/14/18 19:36 11/14/18 19:36 11/14/18 19:36 11/14/18 19:36 Results Result Diagrams: 11/14/18 05:04 11/14/18 05:04 Abnormal lab results 11/14/18 11/14/18 11/14/18 Range/Units 05:04 05:04 05:04 RBC 2.45 L (3.65-5.03) M/mm3 Hgb 7.5 L (10.1-14.3) gm/dl Hct 22.1 L (30.3-42.9) % RDW 16.9 H (13.2-15.2) % Lymph % (Auto) 12.8 L (13.4-35.0) % [place] % (Auto) 8.1 H (0.0-7.3) % Lymph # 0.7 L (1.2-5.4) K/mm3 Seg Neutrophils % 78.3 H (40.0-70.0) % PT 17.1 H (12.2-14.9) Sec. INR 1.43 H (0.87-1.13) Sodium 136 L (137-145) mmol/L Potassium 2.6 L* (3.6-5.0) mmol/L Carbon Dioxide 20 L (22-30) mmol/L BUN 6 L (7-17) mg/dL Creatinine 0.5 L (0.7-1.2) mg/dL Calcium 8.1 L (8.4-10.2) mg/dL Total Bilirubin 1.30 H (0.1-1.2) mg/dL Direct Bilirubin 0.8 H (0-0.2) mg/dL AST 46 H (5-40) units/L ALT 66 H (7-56) units/L Total Protein 4.8 L (6.3-8.2) g/dL Albumin 2.2 L (3.9-5) g/dL All other labs normal. Assessment and Plan - Patient Problems (1) Colonic mass Current Visit: Yes Status: Acute (2) Elevated LFTs Current Visit: Yes Status: Acute (3) Hypokalemia Current Visit: Yes Status: Acute (4) Pelvic mass in female Current Visit: Yes Status: Acute Plan to address problem: This mass was noted on a CT scan performed at [facility] 09/2018 however at that time mass appeared inseparable for the sigmoid colon. Will schedule her for EUA in am after medical clearance obtained. Also will get input from GI and urology. Spotting in vagina is probably d/t erosion of vagina d/t mesh.
[2018-11-15] MEDS: VITAMIN K (ADULT ONLY) 10 MG in NACL 0.9% 50 ML IV SCH (04:55)
[2018-11-15 06:45] LABS: INR 1.23 (0.87-1.13)
[2018-11-15 06:47] LABS: BUN/Creatinine Ratio 12; Blood Urea Nitrogen 7 mg/dL (7-17); Calcium 8.7 mg/dL (8.4-10.2); Hemolysis Index 42
[2018-11-15] MEDS ORDERED: DIPRIVAN 10 MG/ML IV ONE (07:18)
[2018-11-15] MEDS ORDERED: SUBLIMAZE ONE (07:18)
[2018-11-15] MEDS ORDERED: XYLOCAINE MPF 2% ONE (07:18)
--- NOTE | 2018-11-15 07:41 | Anesthesia Consultation ---
Anesthesia Consult and Med Hx Date of service: 11/15/18 - Airway Anesthetic Teeth Evaluation: Good ROM Head & Neck: Adequate Mental/Hyoid Distance: Adequate Mallampati Class: Class III Intubation Access Assessment: Possibly Difficult - Pulmonary Exam CTA: Yes - Cardiac Exam Cardiac Exam: RRR - Pre-Operative Health Status ASA Pre-Surgery Classification: ASA3 Proposed Anesthetic Plan: General - Pulmonary Hx Respiratory Symptoms: No - Cardiovascular System Hx Hypertension: Yes Hx Heart Attack/AMI: No Hx Percutaneous Transluminal Coronary Angioplasty (PTCA): No Hx Cardia Arrhythmia: No - Central Nervous System CVA: No - Gastrointestinal Hx Gastroesophageal Reflux Disease: No - Endocrine Hx Renal Disease: No Hx Liver Disease: Yes (elevated LFTs) Hx Insulin Dependent Diabetes: No Hx Non-Insulin Dependent Diabetes: No Hx Thyroid Disease: No - Hematic Hx Anemia: Yes - Other Systems Hx Obesity: No (malnutritioned) - Additional Comments Anesthesia Medical History Comments: No hx anesthetic complications.
[2018-11-15] MEDS ORDERED: SILVER NITRATE TP ONE (07:45)
[2018-11-15] MEDS ORDERED: MONSEL'S TP ONE ×2 (08:13→08:14)
--- NOTE | 2018-11-15 08:13 | Event Note ---
Date: 11/15/18 Patient is hemodynamically stable and patient was functional before admission. Echo EF 55-60% with impaired relaxation. patient is moderate risk for surgery and ok to proceed for plevic mass biopsy.
[2018-11-15] MEDS ORDERED: NACL 0.9% IR ONE (08:14)
--- NOTE | 2018-11-15 08:34 | Anesthesia Day of Surgery ---
Anesthesia Day of Surgery - Day of Surgery Patient Examined: Yes Patient H&P Reviewed: Yes Patient is NPO: Yes
[2018-11-15] MEDS ORDERED: DILAUDID IV PRN (09:00)
[2018-11-15] MEDS ORDERED: MAGNESIUM SULFATE 2GM/50ML 2 GM/50 ML BAG IV ONE (09:00)
--- NOTE | 2018-11-15 09:13 | Post Operative Note ---
Pre-op diagnosis: pelvic mass Post-op diagnosis: other (vaginal mass) Findings: friable vaginal tissue Procedure: EUA, vaginal biopsy Anesthesia: MAC Surgeon: TAMMY HERNANDEZ Estimated blood loss: minimal Pathology: list (vaginal tissue) Specimen disposition: to lab Condition: stable Disposition: PACU
--- NOTE | 2018-11-15 09:23 | Operative Report ---
Operative Report Operative Report: Date: 11/15/2018 Preoperative diagnosis: 1. Pelvic mass Postoperative diagnosis: 1. Pelvic mass 2. Vaginal mass Procedure: 1. Exam under anesthesia 2. Vaginal mass biopsy Surgeon: Yoselin Clark MD Transfer Engineer: [] Anesthesiologist: Gilda Alcala M.D. Anesthesia: MAC EBL: Minimal Findings: Vaginal atrophy, shortened vagina with friable tissue at the apex Procedure: Patient was taken to the OR and placed in supine position. Anesthesia was induced. She is placed in the dorsal lithotomy position. Exam under anesthesia revealed a shortened stenotic vagina. Mass at the apex of the vagina was palpated as well as in the left adnexa. She was then prepped and gisella ped in usual sterile fashion. Timeout was performed. Vaginal speculum was introduced into the vagina. Tissue was noted on the posterior lip of the speculum that was removed and sent to pathology. Tissue at the apex of the vagina was grasped with ring forceps and removed and also sent to pathology. Monsel solution was placed for hemostasis. Once hemostasis was noted procedure was ended. Patient tolerated procedure well stenotic to recovery room stable condition.
[2018-11-15] MEDS: LEVAQUIN 750MG/150ML 750 MG/150 ML BAG IV SCH (09:33)
[2018-11-15] MEDS: LOVENOX SUB-Q SCH (09:44)
[2018-11-15] MEDS: ASPIRIN PO SCH (09:44)
--- NOTE | 2018-11-15 10:29 | Progress Note ---
Assessment and Plan Echo reviewed - EF 55-60%, mild LVH, impaired relaxation, mild AR, mild to mod MR, normal bubble study. Currently stable cardiac status. Cont present cardiac management and cont observation on telemetry. Replete lytes PRN. The patient has been seen in conjunction with Dr. Dayana العلي who agrees with the assessment and plan of care. - Patient Problems (1) Syncope Current Visit: Yes Status: Suspected (2) Altered mental status Current Visit: Yes Status: Acute (3) Colonic mass Current Visit: Yes Status: Acute (4) Elevated troponin Current Visit: Yes Status: Acute (5) Anemia Current Visit: Yes Status: Acute (6) Hypokalemia Current Visit: Yes Status: Acute (7) Hypomagnesemia Current Visit: Yes Status: Acute (8) Elevated LFTs Current Visit: Yes Status: Acute Subjective Date of service: 11/15/18 Principal diagnosis: abdomen mass Interval history: pt resting in bed, states she is feeling ok. no current complaints. Objective Last Vital Signs Temp 97.8 F 11/15/18 09:47 Pulse 74 11/15/18 09:47 Resp 16 11/15/18 09:47 BP 128/67 11/15/18 09:47 Pulse Ox 10 L 11/15/18 09:47 - Physical Examination General: No Apparent Distress HEENT: Positive: PERRL, Normocephaly, Mucus Membranes Moist Neck: Positive: neck supple, trachea midline Cardiac: Positive: Reg Rate and Rhythm, S1/S2 Lungs: Positive: Decreased Breath Sounds Neuro: Positive: Grossly Intact Abdomen: Negative: Tender Skin: Negative: Rash Musculoskeletal: No Pain Extremities: Absent: edema - Labs and Meds Coagulation 11/15/18 Range/Units 04:17 PT 15.2 H (12.2-14.9) Sec. INR 1.23 H (0.87-1.13) Comprehensive Metabolic Panel 11/15/18 Range/Units 04:17 Sodium 137 (137-145) mmol/L Potassium 4.5 D (3.6-5.0) mmol/L Chloride 105.9 (98-107) mmol/L Carbon Dioxide 18 L (22-30) mmol/L BUN 7 (7-17) mg/dL Creatinine 0.6 L (0.7-1.2) mg/dL Glucose 75 (65-100) mg/dL Calcium 8.7 (8.4-10.2) mg/dL - Imaging and Cardiology EKG: report reviewed, image reviewed Echo: report reviewed - Telemetry EKG Rhythm: Sinus Rhythm - EKG Sinus rhythms and dysrhythmias: sinus tachycardia
--- NOTE | 2018-11-15 10:32 | Post Anesthesia Evaluation ---
- Post Anesthesia Evaluation Patient Participated: Yes Airway Patent: Yes Stable Respiratory Function: Yes Nausea/Vomiting: No Temp > 96.8F: Yes Pain Manageable: Yes Adequeate Hydration: Yes Anesthesia Complications: No
[2018-11-15] MEDS: SODIUM CHLORIDE FLUSH SYRINGE 10 ML IV SCH (11:29)
--- NOTE | 2018-11-15 12:08 | Gastroenterology Consultation ---
<CESAR GARSIA - Last Filed: 11/15/18 13:24> History of Present Illness - Reason for Consult Consult date: 11/15/18 colon mass Requesting physician: CHUNG GASPAR - History of Present Illness Patient is a 78y/o female with PMH of HTN, HLD, GERD, UTIs, and anemia who presented to ED for evaluation of AMS after falling down at home several times. She underwent an abd CT upon admission for c/o abdominal pain with unintentional wt loss which showed suspicion for a colonic carcinoma involving the hepatic flexure, lymphadenopathy, a large mass lesion in the cul-de-sac behind bladder, small hiatal hernia, 7mm nodule in RLL (suspected metastatic deposit), and mild degree ascites. Pelvic U/S showed heterogeneous solid lesion behind the bladder measuring 8.6 x 5.3 x 7.8 cm (neoplastic vs inflammatory). GI has been consulted for colon mass. CARBONATION EQUIPMENT TENDER and oncology are following. Patient is s/p EUA this am by CARBONATION EQUIPMENT TENDER which showed a pelvic mass and vaginal mass with biopsy obtained. Patient is previously known to our service. She underwent a colonoscopy in 2015 that showed sigmoid diverticulosis and was then seen again by us in 02/2018 for anemia with and EGD/colonoscopy ordered at that time but she was lost to f/u with procedures never completed. She was last seen by our group recently, during a hospital admission at [facility] earlier this month for progressive anemia and dark stool. She had an EGD on 11/07/2018 that showed gastritis and hiatal hernia with a colonoscopy recommended as an outpatient. This morning patient was resting in bed w/o acute distress. Reports abd pain is now improved. Denies N/V or active signs of GI bleeding such as hematemesis, melena, or hematochezia. Past History Past Medical History: other (as per HPI) Past Surgical History: cholecystectomy, hysterectomy Social history: Lives alone Family history: hypertension Medications and Allergies Allergies Allergy/AdvReac Type Severity Reaction Status Date / Time ibuprofen Allergy Unknown Verified 11/12/18 21:44 Penicillins Allergy Hives Verified 11/12/18 21:43 codeine AdvReac Nausea Verified 11/12/18 21:44 Home Medications Medication Instructions Recorded Confirmed Last Taken Type Atorvastatin [Lipitor] 40 mg PO DAILY 11/13/18 11/13/18 11/12/18 09:00 History Fenofibrate [Tricor] 145 mg PO QDAY 11/13/18 11/13/18 11/12/18 09:00 History Pantoprazole [Protonix TAB] 40 mg PO QDAY 11/13/18 11/13/18 11/12/18 08:00 History cefUROXime [Ceftin] 250 mg PO Q12H #10 tablet 11/15/18 Unknown Rx Active Meds: Active Medications Acetaminophen (Tylenol) 650 mg PO Q4H PRN PRN Reason: Pain MILD(1-3)/Fever >100.5/CLEMENT Last Admin: 11/14/18 21:03 Dose: 650 mg Documented by: Aspirin (Baby Aspirin) 81 mg PO QDAY [facility] Atorvastatin Calcium (Lipitor) 40 mg PO QHS [facility] Last Admin: 11/14/18 21:03 Dose: 40 mg Documented by: Enoxaparin Sodium (Lovenox) 40 mg SUB-Q QDAY [facility] Last Admin: 11/15/18 09:44 Dose: 40 mg Documented by: Hydromorphone HCl (Dilaudid) 0.5 mg IV Q10MIN PRN PRN Reason: Pain , Severe (7-10) Stop: 11/15/18 18:00 Levofloxacin/Dextrose (Levaquin 750mg/150ml) 750 mg in 150 mls @ 100 mls/hr IV Q24HR [facility]; Protocol Stop: 11/16/18 09:59 Last Admin: 11/15/18 09:33 Dose: 100 mls/hr Documented by: Ondansetron HCl (Zofran) 4 mg IV Q8H PRN PRN Reason: Nausea And Vomiting Sodium Chloride (Sodium Chloride Flush Syringe 10 Ml) 10 ml IV BID [facility] Last Admin: 11/15/18 11:29 Dose: 10 ml Documented by: Sodium Chloride (Sodium Chloride Flush Syringe 10 Ml) 10 ml IV PRN PRN PRN Reason: LINE FLUSH medications reviewed/updated as required Review of Systems - Review of Systems All systems: negative Constitutional: weight loss, fatigue Gastrointestinal: abdominal pain Exam - Constitutional Vital Signs: Temp Pulse Resp BP Pulse Ox 97.8 F 75 16 128/67 100 11/15/18 09:47 11/15/18 10:00 11/15/18 09:47 11/15/18 09:47 11/15/18 10:00 General appearance: no acute distress - Respiratory Respiratory effort: normal - Cardiovascular Rhythm: regular - Gastrointestinal General gastrointestinal: Present: soft, non-tender, non-distended, normal bowel sounds - Labs CBC & Chem 7: 11/14/18 05:04 11/15/18 04:17 Lab Results: Laboratory Results - last 24 hr 11/15/18 11/15/18 04:17 04:17 PT 15.2 H INR 1.23 H Sodium 137 Potassium 4.5 D Chloride 105.9 Carbon Dioxide 18 L Anion Gap 18 BUN 7 Creatinine 0.6 L Estimated GFR > 60 BUN/Creatinine Ratio 12 Glucose 75 Calcium 8.7 Magnesium 1.60 L Assessment and Plan 1.colon/pelvic mass seen on CT 2.chronic iron defeciency anemia 3.abdominal pain 4.weight loss -afebrile -WBC WNL -H/H 7.5/22.1-no active signs of bleeding -continue to monitor H/H and transfuse as needed -CEA level pending -abd CT showed suspicion for a colonic carcinoma involving the hepatic flexure, lymphadenopathy, a large mass lesion in the cul-de-sac behind bladder, small hiatal hernia, 7mm nodule in RLL (suspected metastatic deposit), and mild degree ascites. -Pelvic U/S showed heterogeneous solid lesion behind the bladder measuring 8.6 x 5.3 x 7.8 cm (neoplastic vs inflammatory) -last colonoscopy 2015 showed sigmoid diverticulosis -last EGD 11/07/18 that showed gastritis and hiatal hernia (bx results- intestinal metaplasia; no H pylori) -oncology and CARBONATION EQUIPMENT TENDER following- patient s/p EUA this am which showed a mass at the apex of the vagina as well as in the left adnexa-vaginal mass biopsy obtained (path results pending) -consider colonoscopy based on above path results if needed per oncology -continue supportive care -will have Dr. Fowler review with further recommendations to follow <MARIE FOWLER - Last Filed: 11/15/18 18:14> Exam - Constitutional Vital Signs: Temp Pulse Resp BP Pulse Ox 98.0 F 85 20 115/63 98 11/15/18 13:29 11/15/18 13:29 11/15/18 13:29 11/15/18 13:29 11/15/18 13:29 - Labs CBC & Chem 7: 11/14/18 05:04 11/15/18 04:17 Lab Results: Laboratory Results - last 24 hr 11/15/18 11/15/18 04:17 04:17 PT 15.2 H INR 1.23 H Sodium 137 Potassium 4.5 D Chloride 105.9 Carbon Dioxide 18 L Anion Gap 18 BUN 7 Creatinine 0.6 L Estimated GFR > 60 BUN/Creatinine Ratio 12 Glucose 75 Calcium 8.7 Magnesium 1.60 L Assessment and Plan I have reviewed the advanced practitioners assessment and plan and agree with it with the following additions: Patient discharged prior to my rounding so I did not get the chance to assess her in person
[2018-11-15 13:44] VITALS: BP 115/63
--- NOTE | 2018-11-15 15:46 | Discharge Summary ---
Providers - Providers Date of Admission: 11/13/18 03:41 Date of discharge: 11/15/18 Attending physician: CHUNG GASPAR MD 11/13/18 Consult to Physician [CONS] Routine Comment: ANETTE Consulting Provider: MARGARITO DELGADO Physician Instructions: WAS NOTIFIED/SALOME Reason For Exam: ams Consult to Physician [CONS] Routine Comment: ANETTE Consulting Provider: SAMUEL URIAS Physician Instructions: WAS NOTIFIED/LAY Reason For Exam: elevated troponin 11/13/18 02:47 Consult to Physician [CONS] Routine Comment: ANETTE Consulting Provider: NORMA LUA Physician Instructions: WAS NOTIFIED Reason For Exam: colonic mass, pelvic mass , lung mass 11/13/18 03:04 Occupational Therapy Evaluate and Treat [CONS] Routine Comment: Reason For Exam: Neuro deficits Physical Therapy Evaluation and Treat [CONS] Routine Comment: Reason For Exam: Neuro deficits 11/14/18 08:36 Consult to Physician [CONS] Routine Comment: Consulting Provider: MARIE ANDRADE Physician Instructions: Reason For Exam: pelvic mass biopsy 11/14/18 11:33 Consult to Physician [CONS] Routine Comment: ANETTE/[id number] Consulting Provider: TAMMY HERNANDEZ Physician Instructions: CONSULT WAS CALLED TO /EMMA Reason For Exam: pelvic mass, likely cancer 11/15/18 08:08 Consult to Physician [CONS] Routine Comment: called office/ deepthi Consulting Provider: EDWIN MANZANO Physician Instructions: Reason For Exam: pelvic mass, hx of urinary incontinence s/p surger 11/15/18 08:10 Consult to Physician [CONS] Routine Comment: called office/deepthi Consulting Provider: DUDLEY MILLS Physician Instructions: Reason For Exam: cecal mass Primary care physician: ALVAREZ CASTILLO Hospitalization Reason for admission: Altered mental status, Pelvic mass Condition: Stable Pertinent studies: CT abdomen and pelvis Procedures: Biopsy of the vaginal mass Hospital course: 78-year-old female who Lives by herself. Per her daughter, her daughter was calling her on unable to reach her by phone, had also been went to her place of residence where she found her on the floor confused, she was laying on the floor beside her bed. The daughter feels that she probably fell from the bed or slipped off from the bed. She was recently at [facility] where she was treated for anemia requiring 2 units of blood. She also had EGD which was negative. She was planned for hematology follow-up as an outpatient -The patient is very tearful and sad, these that she doesn't remember what happened she thinks she may have fell, she does not remember at all. She doesn't think she passed out. When asked further questions patient begins to cry and becomes very emotional. Pelvic US; Heterogeneous solid lesion behind the bladder measuring 8.6 x 5.3 x 7.8 cm. Whether this is neoplastic or inflammatory is uncertain. Free fluid not seen. Hematology oncology consulted. PETROLEUM INSPECTOR consulted and biopsy was done and will follow with her urogynecologist as an O/P. Ct A/p; Findings are suspicious for colonic carcinoma involving the hepatic flexure. Nodular lesions medial to the hepatic flexure most likely represent lymphadenopathy. A large mass lesion in the cul-de-sac can be further evaluated using pelvic ultrasound. Small hiatal hernia 7 mm nodule in the visualized right lower lobe. A metastatic deposit is suspected. Mild degree ascites. Patient need further work up as an O/p if the biopsy is non-revealing. Discussed with the patient and family. cxr; No acute cardiopulmonary abnormality. MRI of the brain is negative for Acute intracranial findings. Colonic mass, mass behind bladder and lung lesion Strongly suspicious for malignancy, hematology/oncology consulted and recommend to follow as an O/P. Acute metabolic encephalopathy; MRI is negative Neurology consult appreciated UTI; Continue Levaquin Coagulopathy Normocytic Anemia Has had recent EGD at [facility], status post 2 units of blood recently at [facility], hemoglobin stable Hypokalemia; repleted Hyponatremia; Resolved with normal saline Abnormal troponin; Cardiology consulted and recommended medical management I have discussed the management plan with the patient, her sister Liset Rahman phone # [phone] and her [id number] and both are agreed to have arrangement for follow up with Oncology to follow the result of the biopsy and to continue care if further work up is needed. I discussed the plan of care in the presence of CM and SW. Disposition: [id number] [facility] Time spent for discharge: 34 minutes - Discharge Diagnoses (1) Altered mental status Status: Acute (2) Anemia Status: Acute (3) Colonic mass Status: Acute (4) Elevated LFTs Status: Acute (5) Elevated troponin Status: Acute (6) Hypokalemia Status: Acute (7) Hypomagnesemia Status: Acute (8) Pelvic mass in female Status: Acute (9) Sepsis Status: Acute (10) Syncope Status: Suspected Core Measure Documentation - Palliative Care Palliative Care/ Comfort Measures: Not Applicable - Core Measures Any of the following diagnoses?: none Exam - Physical Exam Narrative exam: Not in cardiopulmonary distress. The patient appeared well nourished and normally developed. Vital signs as documented. Head exam is unremarkable. No scleral icterus . Neck is without jugular venous distension, thyromegaly, or carotid bruits. Lungs are clear to auscultation. Cardiac exam reveals regular rate and Rhythm. Abdominal exam reveals normal bowel sounds. Extremities are nonedematous and both femoral and pedal pulses are normal. DISTRICT OPERATIONS MANAGER: Alert and oriented 3. No focal weakness. - Constitutional Vitals: Temp Pulse Resp BP Pulse Ox 98.0 F 85 20 115/63 98 11/15/18 13:29 11/15/18 13:29 11/15/18 13:29 11/15/18 13:29 11/15/18 13:29 Plan Activity: no restrictions Weight Bearing Status: Full Weight Bearing Diet: regular Additional Instructions: Patient is followed by urogynecologist and oncologist and advised to follow with them. Follow up with: ALVAREZ CASTILLO MD [Primary Care Provider] - 3-5 Days Prescriptions: cefUROXime [Ceftin] 250 mg PO Q12H #10 tablet
--- NOTE | 2018-11-15 23:48 | Hem/Onc Progress Note ---
Assessment and Plan 1. Normocytic anemia with low iron, likely secondary to bleeding issue. 2. History of hepatic flexure mass. We will await tissue diagnosis. 3. Lymph nodes present radiologically. 4. Pelvic cul-de-sac mass. 5. History of loss of consciousness. MRI of the brain does not mention mets. 6. mention of lung lesions. 7. Slightly elevated PT, PTT. 8. Intravenous iron support. At this time, radiologically, this appears to be stage 4 colon cancer. We will await tissue diagnosis. pelvic mass bx - s/p IR eval clinically this looks colon neoplasm - however pelvic mass is peculiar seen by IR - seen by Commercial Finance Analyst - GI and was suggested pelvic mass bx done - OP follow up an option - Patient Problems (1) Colonic mass Status: Acute Subjective Date of service: 11/15/18 Principal diagnosis: colon and pelvic mass Interval history: bx done Objective - Exam Narrative Exam: Pain none General appearance no acute distress Performance status - limited selfcare Eyes EOM intact ENT hearing intact/ Clear oral mucosa LNs cervical not palpable Neck normal ROM Respiratory Normal Breath sounds - CTA. CVS S1 S2 + Extremities normal temperature/ no edema General GI Soft non tender Rectal deferred Female - deferred Skin warm Musculoskeletal strength equal bilaterally Neurologically no Focal deficit/ moves all extremities - Constitutional Vitals: Last Vital Signs Temp 98.0 F 11/15/18 13:29 Pulse 85 11/15/18 13:29 Resp 20 11/15/18 13:29 BP 115/63 11/15/18 13:29 Pulse Ox 98 11/15/18 13:29 - Labs Lab Results: Laboratory Results - last 24 hr 11/15/18 11/15/18 04:17 04:17 PT 15.2 H INR 1.23 H Sodium 137 Potassium 4.5 D Chloride 105.9 Carbon Dioxide 18 L Anion Gap 18 BUN 7 Creatinine 0.6 L Estimated GFR > 60 BUN/Creatinine Ratio 12 Glucose 75 Calcium 8.7 Magnesium 1.60 L Medications & Allergies - Medications Allergies/Adverse Reactions: Allergies ibuprofen Allergy (Verified 11/12/18 21:44) Unknown Penicillins Allergy (Verified 11/12/18 21:43) Hives codeine Adverse Reaction (Verified 11/12/18 21:44) Nausea Home Medications: Home Medications Medication Instructions Recorded Confirmed Last Taken Type Atorvastatin [Lipitor] 40 mg PO DAILY 06/11/13/18 11/12/18 09:00 History Fenofibrate [Tricor] 145 mg PO QDAY 11/13/18 11/13/18 11/12/18 09:00 History Pantoprazole [Protonix TAB] 40 mg PO QDAY 11/13/18 11/13/18 11/12/18 08:00 History cefUROXime [Ceftin] 250 mg PO Q12H #10 tablet 11/15/18 Unknown Rx
[2018-11-16] MEDS ORDERED: BABY ASPIRIN PO SCH (10:00)
== END 2018-11-15 16:55 | DRG 853 ==
LOC: ED 21:07 → 2B-ACE 11-13 03:41
PROVIDERS: ADMIT Internal Medicine; ATTEND Internal Medicine
PROC: 0UBG7ZX Excision of Vagina, Via Natural or Artificial Opening, Diagnostic (ICD-10-PCS; principal; 2018-11-15)
PROC: 0UBG7ZX Excision of Vagina, Via Natural or Artificial Opening, Diagnostic (ICD-10-PCS; 2018-11-15)
DX: A41.9 Sepsis, unspecified organism (principal); G93.41 Metabolic encephalopathy; E43 Unspecified severe protein-calorie malnutrition; E87.1 Hypo-osmolality and hyponatremia; D68.9 Coagulation defect, unspecified; N39.0 Urinary tract infection, site not specified; E83.42 Hypomagnesemia; R79.89 Other specified abnormal findings of blood chemistry; K21.9 Gastro-esophageal reflux disease without esophagitis; I10 Essential (primary) hypertension; K44.9 Diaphragmatic hernia without obstruction or gangrene; R59.0 Localized enlarged lymph nodes; R19.09 Other intra-abdominal and pelvic swelling, mass and lump; D50.9 Iron deficiency anemia, unspecified; I08.0 Rheumatic disorders of both mitral and aortic valves; W01.0XXA Fall on same level from slipping, tripping and stumbling without subsequent striking against object, initial encounter; N95.2 Postmenopausal atrophic vaginitis; E87.6 Hypokalemia; Z60.2 Problems related to living alone; K63.89 Other specified diseases of intestine; Z88.5 Allergy status to narcotic agent; Z88.6 Allergy status to analgesic agent; Z88.0 Allergy status to penicillin; Y93.89 Activity, other specified; Y92.098 Other place in other non-institutional residence as the place of occurrence of the external cause; Y99.8 Other external cause status; Z82.49 Family history of ischemic heart disease and other diseases of the circulatory system; Z82.3 Family history of stroke; Z90.49 Acquired absence of other specified parts of digestive tract; Z90.710 Acquired absence of both cervix and uterus; Z90.722 Acquired absence of ovaries, bilateral; Z90.79 Acquired absence of other genital organ(s); Q52.4 Other congenital malformations of vagina
CPT/HCPCS: 36415; 70450; 70544; 70551; 70552; 71045; 72125; 74177; 76856; 80048; 80053; 80061; 80076; 80307; 81001; 82140; 82378; 82607; 82728; 82747; 83036; 83550; 83735; 84484; 85025; 85610; 85652; 85730; 86850; 86900; 86901; 87040; 87076; 87086; 87116; 87186; 88305; 88341; 88342; 93005; 93010; 93306; 93880; 95819; G0378; A9270-GY; A9577; J1650; J1956; J2704; J2916; J3010; J3370; J3430; J3475; J7030; Q9967

== ENCOUNTER 2018-11-20 17:21 | Inpatient (IN) | payer MEDICARE ==
--- NOTE | 2018-11-20 17:47 | Emergency Department Report ---
HPI - General Chief Complaint: Medical Clearance Time Seen by Provider: 11/20/18 17:36 - HPI HPI: Room 20 The patient is an 78-year-old female presented with a chief complaint of anemia. The patient was sent from [facility] after labs drawn today reveal an H&H of 6.4/18.9. The patient admits to melena for approximately 6 months. Patient denies bright red blood per rectum. Patient has a history of nausea but denies vomiting. The patient received a blood transfusion approximately 3 weeks ago. The patient states there was mention of possible gastric cancer but no diagnosis has been confirmed. 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) Hx Liver Disease: Yes (elevated LFTs) Additional medical history: multiple UTI - Surgical History Hx Cholecystectomy: Yes Additional Surgical History: Hysterectomy - Family History Family history: no significant - Social History Smoking Status: Never Smoker Substance Use Type: None - Medications Home Medications: Home Medications Medication Instructions Recorded Confirmed Last Taken Type Atorvastatin [Lipitor] 40 mg PO DAILY 11/13/18 11/13/18 11/12/18 09:00 History Fenofibrate [Tricor] 145 mg PO QDAY 11/13/18 11/13/18 11/12/18 09:00 History Pantoprazole [Protonix TAB] 40 mg PO QDAY 11/13/18 11/13/18 11/12/18 08:00 History cefUROXime [Ceftin] 250 mg PO Q12H #10 tablet 11/15/18 Unknown Rx ED Review of Systems ROS: Stated complaint: HEMOGLOBIN LOW Other details as noted in HPI Constitutional: malaise Eyes: denies: eye pain ENT: denies: throat pain Respiratory: shortness of breath Cardiovascular: denies: chest pain Endocrine: no symptoms reported Gastrointestinal: abdominal pain, nausea, melena. denies: vomiting, hematemesis, hematochezia Genitourinary: denies: dysuria Musculoskeletal: denies: back pain Neurological: denies: headache Physical Exam - Physical Exam Physical Exam: GENERAL: The patient is well-developed well-nourished []. [] HEENT: Normocephalic. Atraumatic. Extraocular motions are intact. Patient has moist mucous membranes. NECK: Supple. Trachea midline CHEST/LUNGS: Clear to auscultation. There is no respiratory distress noted. HEART/CARDIOVASCULAR: Regular. There is no tachycardia. There is no gallop rub or murmur. ABDOMEN: Abdomen is soft, nontender. Patient has normal bowel sounds. There is no abdominal distention. SKIN: There is no rash. There is no edema. There is no diaphoresis. NEURO: The patient is awake, alert, and oriented. The patient is cooperative. The patient has normal speech MUSCULOSKELETAL: There is no evidence of acute injury. RECTAL: Guaiac positive brown stool ED Medical Decision Making - Lab Data Result diagrams: 11/20/18 18:04 11/20/18 18:04 Laboratory Tests 11/20/18 11/20/18 11/20/18 18:04 18:04 18:04 WBC 3.8 L RBC 2.20 L Hgb 6.7 L Hct 19.5 L* MCV 89 MCH 31 MCHC 35 H RDW 17.6 H Plt Count 310 Lymph % (Auto) 25.1 [place] % (Auto) 10.4 H Eos % (Auto) 0.9 Baso % (Auto) 0.5 Lymph # 1.0 L [place] # 0.4 Eos # 0.0 Baso # 0.0 Seg Neutrophils % 63.1 Seg Neutrophils # 2.4 PT 15.0 H INR 1.21 H APTT 36.1 Sodium 137 Potassium 3.3 L Chloride 102.1 Carbon Dioxide 24 Anion Gap 14 BUN 6 L Creatinine 0.4 L Estimated GFR > 60 BUN/Creatinine Ratio 15 Glucose 101 H Calcium 8.4 Total Bilirubin 1.00 AST 22 ALT 26 Alkaline Phosphatase 78 Total Protein 5.3 L Albumin 2.6 L Albumin/Globulin Ratio 1.0 - Differential Diagnosis GI bleed, symptomatic anemia Critical care attestation.: If time is entered above; I have spent that time in minutes in the direct care of this critically ill patient, excluding procedure time. ED Disposition Clinical Impression: Symptomatic anemia, GI bleed Disposition: OP ADMIT IP TO THIS HOSP Is pt being admited?: Yes Does the pt Need Aspirin: No Condition: Fair Time of Disposition: 19:19 (hospitalist paged (Dr Gaitan))
[2018-11-20 18:27] LABS: Basophils % (Auto) 0.5 % (0.0-1.8); Eosinophils % (Auto) 0.9 % (0.0-4.3); Hemoglobin 6.7 gm/dl (10.1-14.3); Lymphocytes % (Auto) 25.1 % (13.4-35.0); Mean Corpuscular HGB Conc 35 % (30-34); Mean Corpuscular Volume 89 fl (79-97); Monocytes # (Auto) 0.4 K/mm3 (0.0-0.8); Monocytes % (Auto) 10.4 % (0.0-7.3); Platelet Count 310 K/mm3 (140-440); Red Cell Distribution Width 17.6 % (13.2-15.2)
[2018-11-20 18:51] LABS: INR 1.21 (0.87-1.13)
[2018-11-20 18:52] LABS: Partial Thromboplastin Time 36.1 Sec. (24.2-36.6)
[2018-11-20 18:53] LABS: Alanine Aminotransferase 26 units/L (7-56); Albumin 2.6 g/dL (3.9-5); BUN/Creatinine Ratio 15; Blood Urea Nitrogen 6 mg/dL (7-17); Calcium 8.4 mg/dL (8.4-10.2); Hemolysis Index 0
[2018-11-20 18:58] LABS: Hematocrit 19.5 % (30.3-42.9)
[2018-11-20] MEDS ORDERED: NACL 0.9% 500 ML 500 ML IV ONE (19:09)
--- NOTE | 2018-11-20 19:39 | History and Physical Report ---
History of Present Illness Chief complaint: I have blood in my stool History of present illness: 78 YO Female SNF Resident at [facility] with HTN, CVA, Debility, Pelvic mass s/p biopsy, Malnutrition presents to ED for evaluation. PT states that she has intermittent episodes of blood in her stool with multiple episodes over the past 1 week. Pt also acknowledges generalized weakness, and cold intolerance. Pt underwent a CBC today and was found to have anemia. EMS notified and patient transported to [facility]. Pt seen and evaluated in ED and found to have symptoms consistent with GI Bleed and symptomatic anemia. Pt admitted to [facility] and initiated on GI Bleed protocol. GI team consulted in ED. Pt denies fever, chills, CP, Palpitations, NVD, Trauma, ingestion of food/water from new/different sources, skin rash, or recent ill contacts. Prior admission on 11/13/18 reviewed. All listed medication reconciled at time of admission. Past History Past Medical History: hypertension, stroke, other (deblity, malnutrition, pelvic mass) Past Surgical History: cholecystectomy, hysterectomy Medications and Allergies Allergies Allergy/AdvReac Type Severity Reaction Status Date / Time ibuprofen Allergy Unknown Verified 11/12/18 21:44 Penicillins Allergy Hives Verified 11/12/18 21:43 codeine AdvReac Nausea Verified 11/12/18 21:44 Home Medications Medication Instructions Recorded Confirmed Last Taken Type Atorvastatin [Lipitor] 40 mg PO DAILY 11/13/18 11/13/18 11/12/18 09:00 History Fenofibrate [Tricor] 145 mg PO QDAY 11/13/18 11/13/18 11/12/18 09:00 History Pantoprazole [Protonix TAB] 40 mg PO QDAY 11/13/18 11/13/18 11/12/18 08:00 Hist ory cefUROXime [Ceftin] 250 mg PO Q12H #10 tablet 11/15/18 Unknown Rx Review of Systems Constitutional: weakness, no weight loss, no weight gain, no fever, no chills Ears, nose, mouth and throat: no ear pain, no ear discharge, no tinnitis, no decreased hearing, no nose pain Cardiovascular: no chest pain, no orthopnea, no palpitations, no rapid/irregular heart beat, no edema, no syncope Respiratory: no cough, no cough with sputum, no excessive sputum, no hemoptysis, no shortness of breath, no dyspnea on exertion Gastrointestinal: melena, no nausea, no vomiting, no diarrhea, no constipation Genitourinary Female: no pelvic pain, no flank pain, no menorrhagia, no dysuria, no urinary frequency Rectal: no pain, no incontinence, no itching Musculoskeletal: no neck stiffness, no low back pain, no shooting leg pain Integumentary: no rash, no pruritis, no redness, no sores, no wounds Neurological: no paralysis, no weakness, no parathesias, no numbness, no tingling Psychiatric: no anxiety, no memory loss, no change in sleep habits, no sleep disturbances, no insomnia Endocrine: no cold intolerance, no heat intolerance, no polyphagia, no excessive thirst, no polydipsia, no polyuria, no nocturia Hematologic/Lymphatic: no easy bruising, no easy bleeding, no lymphadenopathy, no lymphedema Allergic/Immunologic: no urticaria, no allergic rhinitis, no wheezing Exam - Constitutional Vitals: Temp Pulse Resp BP Pulse Ox 99.6 F 70 19 121/59 97 11/20/18 19:31 11/20/18 19:31 11/20/18 19:31 11/20/18 19:31 11/20/18 19:31 General appearance: Present: no acute distress, mild distress - EENT Eyes: Present: PERRL (conjunctival pallor) ENT: hearing intact, clear oral mucosa - Neck Neck: Present: supple, normal ROM - Respiratory Respiratory effort: normal Respiratory: bilateral: CTA - Cardiovascular Heart Sounds: Present: S1 & S2. Absent: rub, click - Extremities Extremities: pulses symmetrical, No edema Peripheral Pulses: within normal limits - Abdominal General gastrointestinal: Present: soft, non-tender, non-distended, normal bowel sounds Female genitourinary: Present: normal - Integumentary Integumentary: Present: clear, warm, dry - Musculoskeletal Musculoskeletal: gait normal, strength equal bilaterally - Psychiatric Psychiatric: appropriate mood/affect, intact judgment & insight - Neurologic Neurologic: CNII-XII intact, moves all extremities Results - Labs CBC & Chem 7: 11/20/18 18:04 11/20/18 18:04 Labs: Abnormal lab results 11/20/18 11/20/18 11/20/18 Range/Units 18:04 18:04 18:04 WBC 3.8 L (4.5-11.0) K/mm3 RBC 2.20 L (3.65-5.03) M/mm3 Hgb 6.7 L (10.1-14.3) gm/dl Hct 19.5 L* (30.3-42.9) % MCHC 35 H (30-34) % RDW 17.6 H (13.2-15.2) % [place] % (Auto) 10.4 H (0.0-7.3) % Lymph # 1.0 L (1.2-5.4) K/mm3 PT 15.0 H (12.2-14.9) Sec. INR 1.21 H (0.87-1.13) Potassium 3.3 L (3.6-5.0) mmol/L BUN 6 L (7-17) mg/dL Creatinine 0.4 L (0.7-1.2) mg/dL Glucose 101 H (65-100) mg/dL Total Protein 5.3 L (6.3-8.2) g/dL Albumin 2.6 L (3.9-5) g/dL Crossmatch 11/20/18 Range/Units 18:04 WBC (4.5-11.0) K/mm3 RBC (3.65-5.03) M/mm3 Hgb (10.1-14.3) gm/dl Hct (30.3-42.9) % MCHC (30-34) % RDW (13.2-15.2) % [place] % (Auto) (0.0-7.3) % Lymph # (1.2-5.4) K/mm3 PT (12.2-14.9) Sec. INR (0.87-1.13) Potassium (3.6-5.0) mmol/L BUN (7-17) mg/dL Creatinine (0.7-1.2) mg/dL Glucose (65-100) mg/dL Total Protein (6.3-8.2) g/dL Albumin (3.9-5) g/dL Crossmatch See Detail Assessment and Plan - Patient Problems (1) GI bleed Current Visit: Yes Status: Acute Qualifiers: GI bleed type/associated pathology: anorectal hemorrhage Qualified Code(s): K62.5 - Hemorrhage of anus and rectum Plan to address problem: Admit to IMCU, IV PPI therapy, serial cbc, PRBC transfusion, GI consulted, supportive care. (2) Symptomatic anemia Current Visit: Yes Status: Acute Plan to address problem: PRBC Transfusion, repeat cbc in am. (3) Pelvic mass in female Current Visit: No Status: Acute Plan to address problem: S/P biopsy as per [facility]GER service. (4) DVT prophylaxis Current Visit: Yes Status: Acute Plan to address problem: SCD to BLE while in bed, hold anticoagulation due to GI bleeding.
[2018-11-20] MEDS ORDERED: ZOFRAN IV PRN (20:06)
[2018-11-20] MEDS ORDERED: SODIUM CHLORIDE FLUSH SYRINGE 10 ML IV PRN (20:06)
[2018-11-20] MEDS ORDERED: NACL 0.9% 500 ML 500 ML IV NR (20:09)
[2018-11-20] MEDS ORDERED: NACL 0.9% 500 ML 500 ML ONE (21:00)
[2018-11-20] MEDS: PROTONIX IV SCH (23:45)
[2018-11-20] MEDS: SODIUM CHLORIDE FLUSH SYRINGE 10 ML IV SCH (23:55)
[2018-11-21 05:12] LABS: Basophils % (Auto) 0.5 % (0.0-1.8); Eosinophils % (Auto) 0.7 % (0.0-4.3); Hematocrit 33.7 % (30.3-42.9); Hemoglobin 11.7 gm/dl (10.1-14.3); Lymphocytes # (Auto) 1.1 K/mm3 (1.2-5.4); Lymphocytes % (Auto) 19.1 % (13.4-35.0); Mean Corpuscular HGB Conc 35 % (30-34); Mean Corpuscular Volume 90 fl (79-97); Monocytes # (Auto) 0.6 K/mm3 (0.0-0.8); Monocytes % (Auto) 9.7 % (0.0-7.3); Platelet Count 274 K/mm3 (140-440); Red Blood Count 3.77 M/mm3 (3.65-5.03); Red Cell Distribution Width 15.3 % (13.2-15.2)
[2018-11-21 05:35] LABS: Alanine Aminotransferase 24 units/L (7-56); Albumin 2.5 g/dL (3.9-5); BUN/Creatinine Ratio 15; Blood Urea Nitrogen 6 mg/dL (7-17); Calcium 8.4 mg/dL (8.4-10.2); Hemolysis Index 4
--- NOTE | 2018-11-21 08:39 | Event Note ---
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 Pathology reviewed by phone with Dr. Asher. Paged Dr. Gaitan. Waiting for return call.
[2018-11-21] MEDS: SODIUM CHLORIDE FLUSH SYRINGE 10 ML IV SCH ×2 (11:04→23:41)
[2018-11-21] MEDS: TRICOR PO SCH (11:04)
[2018-11-21] MEDS: PROTONIX IV SCH ×2 (11:04→23:38)
--- NOTE | 2018-11-21 11:09 | Gastroenterology Consultation ---
History of Present Illness - Reason for Consult Consult date: 11/21/18 GI bleeding Requesting physician: RAMÍREZ SHERWOOD - History of Present Illness Patient is a 78 y/o female with PMH of HTN, HLD, GERD, UTIs, CVA, anemia, and debility who is previously known to our service (see consult note on 11/15/18) and was recently discharged to SNF on 11/15/18 after being hospitalized for evaluation of AMS, abd pain, unintentional wt loss, generalized weakness, and anemia. She underwent an abd CT on 11/12/18 that showed suspicion for metastatic colon cancer and had a vaginal bx completed by [facility] with recommendations given to f/u with oncology upon discharge. She now presents with c/o blood in her stool to which GI has been consulted and recurrent weakness/anemia. This morning patient was resting in bed w/o acute distress. Admits to intermittent lower abd pain but none currently and intermittent bright red blood mixed in stool but none reported overnight or this am per pt/nursing. Denies fever, CP, SOB, N/V, hematemesis, melena, diarrhea, or constipation. Past History Past Medical History: other (as per HPI) Past Surgical History: cholecystectomy, hysterectomy Social history: other (group home resident) Family history: hypertension Medications and Allergies Allergies Allergy/AdvReac Type Severity Reaction Status Date / Time ibuprofen Allergy Unknown Verified 11/12/18 21:44 Penicillins Allergy Hives Verified 11/12/18 21:43 codeine AdvReac Nausea Verified 11/12/18 21:44 Home Medications Medication Instructions Recorded Confirmed Last Taken Type Atorvastatin [Lipitor] 40 mg PO DAILY 11/13/18 11/21/18 11/20/18 22:00 History Fenofibrate [Tricor] 145 mg PO QDAY 11/13/18 11/21/18 11/21/18 10:00 History Pantoprazole [Protonix TAB] 40 mg PO QDAY 11/13/18 11/21/18 11/21/18 10:00 History 40 cefUROXime [Ceftin] 250 mg PO Q12H #10 tablet 11/15/18 11/21/18 11/21/18 Rx Active Meds: Active Medications Acetaminophen (Tylenol) 650 mg PO Q4H PRN PRN Reason: Pain MILD(1-3)/Fever >100.5/CLEMENT Atorvastatin Calcium (Lipitor) 40 mg PO QHS [facility] Last Admin: 11/20/18 23:45 Dose: 40 mg Documented by: Fenofibrate (Tricor) 145 mg PO QDAY [facility] Last Admin: 11/21/18 11:04 Dose: 145 mg Documented by: Ondansetron HCl (Zofran) 4 mg IV Q8H PRN PRN Reason: Nausea And Vomiting Pantoprazole Sodium (Protonix) 40 mg IV BID [facility] Last Admin: 11/21/18 11:04 Dose: 40 mg Documented by: Sodium Chloride (Sodium Chloride Flush Syringe 10 Ml) 10 ml IV BID [facility] Last Admin: 11/21/18 11:04 Dose: 10 ml Documented by: Sodium Chloride (Sodium Chloride Flush Syringe 10 Ml) 10 ml IV PRN PRN PRN Reason: LINE FLUSH medications reviewed/updated as required Review of Systems - Review of Systems All systems: negative Constitutional: weakness Gastrointestinal: abdominal pain, BRBPR Exam - Constitutional Vital Signs: Temp Pulse Resp BP Pulse Ox 98.6 F 64 18 117/53 100 11/21/18 04:00 11/21/18 04:31 11/21/18 06:00 11/21/18 04:31 11/21/18 08:58 General appearance: no acute distress - EENT Eyes: PERRL, EOM intact ENT: hearing intact - Respiratory Respiratory effort: normal - Cardiovascular Rhythm: regular - Gastrointestinal General gastrointestinal: Present: soft, non-distended, normal bowel sounds - Neurologic Neurological: alert and oriented x3 - Labs CBC & Chem 7: 11/21/18 04:46 11/21/18 04:46 Lab Results: Laboratory Results - last 24 hr 11/20/18 11/20/18 11/20/18 18:04 18:04 18:04 WBC 3.8 L RBC 2.20 L Hgb 6.7 L Hct 19.5 L* MCV 89 MCH 31 MCHC 35 H RDW 17.6 H Plt Count 310 Lymph % (Auto) 25.1 [place] % (Auto) 10.4 H Eos % (Auto) 0.9 Baso % (Auto) 0.5 Lymph # 1.0 L [place] # 0.4 Eos # 0.0 Baso # 0.0 Seg Neutrophils % 63.1 Seg Neutrophils # 2.4 PT 15.0 H INR 1.21 H APTT 36.1 Sodium 137 Potassium 3.3 L Chloride 102.1 Carbon Dioxide 24 Anion Gap 14 BUN 6 L Creatinine 0.4 L Estimated GFR > 60 BUN/Creatinine Ratio 15 Glucose 101 H Calcium 8.4 Total Bilirubin 1.00 AST 22 ALT 26 Alkaline Phosphatase 78 Total Protein 5.3 L Albumin 2.6 L Albumin/Globulin Ratio 1.0 Blood Type Antibody Screen Crossmatch 11/20/18 11/21/18 11/21/18 18:04 04:46 04:46 WBC 5.8 RBC 3.77 Hgb 11.7 D Hct 33.7 D MCV 90 MCH 31 MCHC 35 H RDW 15.3 H Plt Count 274 Lymph % (Auto) 19.1 [place] % (Auto) 9.7 H Eos % (Auto) 0.7 Baso % (Auto) 0.5 Lymph # 1.1 L [place] # 0.6 Eos # 0.0 Baso # 0.0 Seg Neutrophils % 70.0 Seg Neutrophils # 4.1 PT INR APTT Sodium 137 Potassium 3.8 Chloride 103.1 Carbon Dioxide 24 Anion Gap 14 BUN 6 L Creatinine 0.4 L Estimated GFR > 60 BUN/Creatinine Ratio 15 Glucose 97 Calcium 8.4 Total Bilirubin 1.40 H AST 22 ALT 24 Alkaline Phosphatase 74 Total Protein 5.1 L Albumin 2.5 L Albumin/Globulin Ratio 1.0 Blood Type O POSITIVE Antibody Screen Negative Crossmatch See Detail Assessment and Plan 1.metastatic colon CA? 2.rectal bleeding 3.acute on chronic iron deficiency anemia 4.abdominal pain 5. wt loss -H/H 11.7/33.7 s/p blood transfusion (6.7/19.5 on admission) -continue to monitor H/H and transfuse as needed -patient reports intermittent bright red blood mixed with stool. No hematemesis or melena. -currently HD stable with no active signs of bleeding overnight or this am per pt/nursing -CEA elevated 11/14/18 (457.2) -last colonoscopy 2015 showed sigmoid diverticulosis -last EGD 11/07/18 that showed gastritis and hiatal hernia (bx results- intestinal metaplasia, no H pylori; outpatient colonoscopy recommended for further evaluation of anemia as previously recommended in 2018 but patient lost to f/u) -abd CT 11/12/18-showed suspicion for a colonic carcinoma involving the hepatic flexure, lymphadenopathy, a large mass lesion in the cul-de-sac behind bladder, small hiatal hernia, 7mm nodule in RLL (suspected metastatic deposit), and mild degree ascites -pelvic U/S 11/13/18-showed heterogeneous solid lesion behind the bladder measuring 8.6 x 5.3 x 7.8 cm (neoplastic vs inflammatory) -s/p EUA by PLASTER MAKER on 11/15/18- showed a mass at the apex of the vagina as well as in the left adnexa- vaginal mass biopsy results showed metastatic adenocarcinoma suggestive of colorectal primary -etiology most likely 2/2 to above -recommend oncology consult -no plans for colonoscopy at this time unless needed/recommended per oncology -continue supportive care -will follow
--- NOTE | 2018-11-21 15:15 | Progress Note ---
Assessment and Plan /Metastatic colon CA? - discussed with dr bahena, has outpt followup /Rectal bleeding -H/H 11.7/33.7 s/p blood transfusion (6.7/19.5 on admission) -continue to monitor H/H and transfuse as needed -last colonoscopy 2016 showed sigmoid diverticulosis -last EGD 11/07/18 that showed gastritis and hiatal hernia (bx results- intestinal metaplasia, no H pylori; outpatient colonoscopy recommended for further evaluation of anemia as previously recommended in 2018 but patient lost to f/u) - Gi consulted and -no plans for colonoscopy at this time unless needed/recommended per oncology /acute on chronic iron deficiency anemia - cont iron supplement /abdominal pain, due to cancer, pain mx as needed /malnutrition, moderate to severe likely - due to underlying malignance /DVT px, SCD Subjective Date of service: 11/21/18 Interval history: Patient seen and examined. Medical records and medication list reviewed. No acute event overnight noted by the RN. Patient denies any chest pain or difficulty breathing. Patient is worried about her recent diagnosis Discussed plan of care at bedside with patient and her sister by phone. Objective - Constitutional Vitals: Vital Signs - 12hr 11/21/18 11/21/18 11/21/18 03:21 03:31 03:41 Temperature Pulse Rate Respiratory Rate Blood Pressure 111/55 111/55 111/55 O2 Sat by Pulse 99 99 98 Oximetry 11/21/18 11/21/18 11/21/18 03:51 04:00 04:11 Temperature 98.6 F Pulse Rate 75 65 Respiratory 20 19 Rate Blood Pressure 111/55 111/55 117/53 O2 Sat by Pulse 99 97 97 Oximetry 11/21/18 11/21/18 11/21/18 04:21 04:31 06:00 Temperature Pulse Rate 65 64 Respiratory 22 23 18 Rate Blood Pressure 117/53 117/53 O2 Sat by Pulse 98 98 97 Oximetry 11/21/18 11/21/18 11/21/18 06:31 06:41 06:51 Temperature Pulse Rate 67 63 62 Respiratory 21 19 17 Rate Blood Pressure 126/69 126/69 126/69 O2 Sat by Pulse 97 96 99 Oximetry 11/21/18 11/21/18 11/21/18 07:00 07:11 07:21 Temperature Pulse Rate Respiratory Rate Blood Pressure 114/61 114/61 114/61 O2 Sat by Pulse 98 98 98 Oximetry 11/21/18 11/21/18 11/21/18 07:30 07:41 07:51 Temperature Pulse Rate 59 L 61 Respiratory 23 21 Rate Blood Pressure 114/61 114/61 114/61 O2 Sat by Pulse 98 99 97 Oximetry 11/21/18 11/21/18 11/21/18 08:00 08:11 08:21 Temperature Pulse Rate 64 63 Respiratory 13 25 H Rate Blood Pressure 114/61 122/64 122/64 O2 Sat by Pulse 90 98 99 Oximetry 11/21/18 11/21/18 11/21/18 08:31 08:41 08:51 Temperature Pulse Rate Respiratory Rate Blood Pressure 114/61 114/61 114/61 O2 Sat by Pulse 99 98 97 Oximetry 11/21/18 11/21/18 11/21/18 08:58 09:00 09:11 Temperature Pulse Rate Respiratory Rate Blood Pressure 113/58 113/58 O2 Sat by Pulse 100 99 99 Oximetry 11/21/18 11/21/18 11/21/18 09:21 09:31 09:41 Temperature Pulse Rate 70 73 Respiratory 13 17 Rate Blood Pressure 113/58 113/58 113/58 O2 Sat by Pulse 98 98 98 Oximetry 11/21/18 11/21/18 11/21/18 09:51 10:00 10:11 Temperature Pulse Rate 71 62 60 Respiratory 13 21 25 H Rate Blood Pressure 113/58 122/60 122/60 O2 Sat by Pulse 100 99 97 Oximetry 11/21/18 11/21/18 11/21/18 10:21 10:31 10:41 Temperature Pulse Rate 63 64 65 Respiratory 12 10 L 23 Rate Blood Pressure 122/60 122/60 122/60 O2 Sat by Pulse 98 99 95 Oximetry 11/21/18 11/21/18 11/21/18 10:51 11:00 11:11 Temperature Pulse Rate 68 67 65 Respiratory 12 9 L 10 L Rate Blood Pressure 122/60 131/61 131/61 O2 Sat by Pulse 98 98 99 Oximetry 11/21/18 11/21/18 11/21/18 11:21 11:31 11:41 Temperature Pulse Rate 61 67 62 Respiratory 11 L 16 13 Rate Blood Pressure 131/61 131/61 131/61 O2 Sat by Pulse 98 98 97 Oximetry 11/21/18 11/21/1819 11:51 12:00 12:11 Temperature Pulse Rate 68 60 63 Respiratory 11 L 20 11 L Rate Blood Pressure 131/61 131/61 135/68 O2 Sat by Pulse 97 98 98 Oximetry 11/21/18 11/21/18 11/21/18 12:21 12:31 12:41 Temperature Pulse Rate 71 68 78 Respiratory 12 17 15 Rate Blood Pressure 135/68 135/68 135/68 O2 Sat by Pulse 97 99 98 Oximetry 11/21/18 11/21/18 11/21/18 12:51 13:00 13:11 Temperature Pulse Rate 73 80 62 Respiratory 20 10 L 11 L Rate Blood Pressure 135/68 144/84 144/84 O2 Sat by Pulse Oximetry 11/21/18 11/21/18 11/21/18 13:21 13:31 13:41 Temperature Pulse Rate 62 62 64 Respiratory 13 18 22 Rate Blood Pressure 144/84 144/84 144/84 O2 Sat by Pulse 100 97 98 Oximetry 11/21/18 11/21/18 11/21/18 13:51 14:01 14:11 Temperature Pulse Rate 64 62 62 Respiratory 20 19 22 Rate Blood Pressure 144/84 144/84 133/74 O2 Sat by Pulse 100 98 99 Oximetry 11/21/18 11/21/18 11/21/18 14:21 14:31 14:41 Temperature 98.9 F Pulse Rate 65 61 64 Respiratory 21 17 20 Rate Blood Pressure 133/74 133/74 125/65 O2 Sat by Pulse 98 99 99 Oximetry General appearance: Present: no acute distress - EENT Eyes: PERRL, EOM intact ENT: hearing intact, clear oral mucosa Ears: bilateral: normal - Neck Neck: supple, normal ROM - Respiratory Respiratory effort: normal Respiratory: bilateral: CTA - Cardiovascular Rhythm: regular Heart Sounds: Present: S1 & S2. Absent: gallop, rub Extremities: pulses intact, No edema, normal color, Full ROM - Gastrointestinal General gastrointestinal: Present: soft, non-tender, non-distended, normal bowel sounds - Integumentary Integumentary: clear, warm, dry - Musculoskeletal Musculoskeletal: generalized weakness - Neurologic Neurologic: moves all extremities - Psychiatric Psychiatric: memory intact, appropriate mood/affect, intact judgment & insight - Labs CBC & Chem 7: 11/22/18 05:25 11/22/18 05:25 Labs: Abnormal lab results 11/20/18 11/20/18 11/20/18 Range/Units 18:04 18:04 18:04 WBC 3.8 L (4.5-11.0) K/mm3 RBC 2.20 L (3.65-5.03) M/mm3 Hgb 6.7 L (10.1-14.3) gm/dl Hct 19.5 L* (30.3-42.9) % MCHC 35 H (30-34) % RDW 17.6 H (13.2-15.2) % [place] % (Auto) 10.4 H (0.0-7.3) % Lymph # 1.0 L (1.2-5.4) K/mm3 PT 15.0 H (12.2-14.9) Sec. INR 1.21 H (0.87-1.13) Potassium 3.3 L (3.6-5.0) mmol/L BUN 6 L (7-17) mg/dL Creatinine 0.4 L (0.7-1.2) mg/dL Glucose 101 H (65-100) mg/dL Total Bilirubin (0.1-1.2) mg/dL Total Protein 5.3 L (6.3-8.2) g/dL Albumin 2.6 L (3.9-5) g/dL Crossmatch 11/20/18 11/21/18 11/21/18 Range/Units 18:04 04:46 04:46 WBC (4.5-11.0) K/mm3 RBC (3.65-5.03) M/mm3 Hgb (10.1-14.3) gm/dl Hct (30.3-42.9) % MCHC 35 H (30-34) % RDW 15.3 H (13.2-15.2) % [place] % (Auto) 9.7 H (0.0-7.3) % Lymph # 1.1 L (1.2-5.4) K/mm3 PT (12.2-14.9) Sec. INR (0.87-1.13) Potassium (3.6-5.0) mmol/L BUN 6 L (7-17) mg/dL Creatinine 0.4 L (0.7-1.2) mg/dL Glucose (65-100) mg/dL Total Bilirubin 1.40 H (0.1-1.2) mg/dL Total Protein 5.1 L (6.3-8.2) g/dL Albumin 2.5 L (3.9-5) g/dL Crossmatch See Detail
--- NOTE | 2018-11-21 21:44 | Consultation ---
History of Present Illness Consult date: 11/21/18 History of present illness: Patient know to me. She is s/p vaginal biopsy that revealed metastatic adenocarcinoma probable colorectal primary. She has had a hysterectomy. Medications and Allergies Allergies Allergy/AdvReac Type Severity Reaction Status Date / Time ibuprofen Allergy Unknown Verified 11/12/18 21:44 Penicillins Allergy Hives Verified 11/12/18 21:43 codeine AdvReac Nausea Verified 11/12/18 21:44 Home Medications Medication Instructions Recorded Confirmed Last Taken Type Atorvastatin [Lipitor] 40 mg PO DAILY 11/13/18 11/21/18 11/20/18 22:00 History Fenofibrate [Tricor] 145 mg PO QDAY 11/13/18 11/21/18 11/21/18 10:00 History Pantoprazole [Protonix TAB] 40 mg PO QDAY 11/13/18 11/21/18 11/21/18 10:00 History 40 cefUROXime [Ceftin] 250 mg PO Q12H #10 tablet 11/15/18 11/21/18 11/21/18 Rx Active Meds: Active Medications Acetaminophen (Tylenol) 650 mg PO Q4H PRN PRN Reason: Pain MILD(1-3)/Fever >100.5/CLEMENT Atorvastatin Calcium (Lipitor) 40 mg PO QHS [facility] Last Admin: 11/20/18 23:45 Dose: 40 mg Documented by: Fenofibrate (Tricor) 145 mg PO QDAY [facility] Last Admin: 11/21/18 11:04 Dose: 145 mg Documented by: Ondansetron HCl (Zofran) 4 mg IV Q8H PRN PRN Reason: Nausea And Vomiting Pantoprazole Sodium (Protonix) 40 mg IV BID [facility] Last Admin: 11/21/18 11:04 Dose: 40 mg Documented by: Sodium Chloride (Sodium Chloride Flush Syringe 10 Ml) 10 ml IV BID [facility] Last Admin: 11/21/18 11:04 Dose: 10 ml Documented by: Sodium Chloride (Sodium Chloride Flush Syringe 10 Ml) 10 ml IV PRN PRN PRN Reason: LINE FLUSH - Vital Signs Vital signs: Vital Signs Pulse Ox 98 11/20/18 17:42 Temp Pulse Resp BP Pulse Ox 98.7 F 62 22 144/73 97 11/21/18 19:59 11/21/18 19:59 11/21/18 19:59 11/21/18 19:59 11/21/18 19:59 Results Result Diagrams: 11/21/18 04:46 11/21/18 04:46 Abnormal lab results 11/20/18 11/21/18 11/21/18 Range/Units 18:04 04:46 04:46 MCHC 35 H (30-34) % RDW 15.3 H (13.2-15.2) % [place] % (Auto) 9.7 H (0.0-7.3) % Lymph # 1.1 L (1.2-5.4) K/mm3 BUN 6 L (7-17) mg/dL Creatinine 0.4 L (0.7-1.2) mg/dL Total Bilirubin 1.40 H (0.1-1.2) mg/dL Total Protein 5.1 L (6.3-8.2) g/dL Albumin 2.5 L (3.9-5) g/dL Crossmatch See Detail All other labs normal. Assessment and Plan - Patient Problems (1) GI bleed Current Visit: Yes Status: Acute Qualifiers: GI bleed type/associated pathology: anorectal hemorrhage Qualified Code(s): K62.5 - Hemorrhage of anus and rectum (2) Symptomatic anemia Current Visit: Yes Status: Acute (3) Colonic mass Current Visit: No Status: Acute (4) Metastatic adenocarcinoma Current Visit: Yes Status: Acute Plan to address problem: Probable colorectal primary Doubt clam picker origin however if GI/oncology evaluation reveals [employer] primary she will then require an evaluation by a gynecologic oncologist as an outpatient. If an assessment by a gynecologic oncologist is require prior to discharge home she will need to be transferred to another facility where such services are available. Will sign off, please call if needed
[2018-11-21] MEDS: TYLENOL PO PRN (23:37)
[2018-11-22 06:09] LABS: Basophils % (Auto) 0.8 % (0.0-1.8); Eosinophils # (Auto) 0.1 K/mm3 (0.0-0.4); Eosinophils % (Auto) 1.6 % (0.0-4.3); Hematocrit 36.1 % (30.3-42.9); Hemoglobin 12.4 gm/dl (10.1-14.3); Lymphocytes # (Auto) 1.1 K/mm3 (1.2-5.4); Lymphocytes % (Auto) 22.5 % (13.4-35.0); Mean Corpuscular HGB Conc 34 % (30-34); Mean Corpuscular Volume 89 fl (79-97); Monocytes # (Auto) 0.5 K/mm3 (0.0-0.8); Monocytes % (Auto) 11.2 % (0.0-7.3); Platelet Count 287 K/mm3 (140-440); Red Blood Count 4.06 M/mm3 (3.65-5.03); Red Cell Distribution Width 15.6 % (13.2-15.2)
[2018-11-22 06:31] LABS: BUN/Creatinine Ratio 15; Blood Urea Nitrogen 6 mg/dL (7-17); Calcium 9.2 mg/dL (8.4-10.2); Hemolysis Index 8
[2018-11-22] MEDS: TRICOR PO SCH (09:59)
[2018-11-22] MEDS: PROTONIX IV SCH (09:59)
[2018-11-22] MEDS: SODIUM CHLORIDE FLUSH SYRINGE 10 ML IV SCH ×2 (10:00→23:34)
[2018-11-22] MEDS ORDERED: K-DUR PO ONE (10:30)
[2018-11-22] MEDS ORDERED: FERRLECIT 125 MG in NACL 0.9% 100 ML IV ONE (13:30)
--- NOTE | 2018-11-22 14:34 | Discharge Summary ---
Providers - Providers Date of Admission: 11/20/18 20:06 Date of discharge: 11/24/18 Attending physician: JENNIFER BURGOS 11/20/18 20:10 Consult to Physician [CONS] Routine Comment: Consulting Provider: DIETER FLOR Physician Instructions: Reason For Exam: GI bleeding 11/21/18 11:43 Consult to Physician [CONS] Routine Comment: Consulting Provider: TAMMY HERNANDEZ Physician Instructions: Reason For Exam: pelvic cancer 11/21/18 11:44 Consult to Physician [CONS] Routine Comment: Consulting Provider: NORMA LUA Physician Instructions: Reason For Exam: adenocarcinoma 11/22/18 09:38 Physical Therapy Evaluation and Treat [CONS] Routine Comment: Reason For Exam: Debility 11/22/18 12:59 Occupational Therapy Evaluate and Treat [CONS] Routine Comment: Reason For Exam: Debility Primary care physician: BECKY MOHAN Hospitalization Condition: Fair Hospital course: Patient is a 78 y/o female with PMH of HTN, HLD, GERD, UTIs, CVA, anemia, hysterectomy and debility and was recently discharged to SNF on 11/15/18 after being hospitalized for evaluation of AMS, abd pain, unintentional wt loss, generalized weakness, and anemia. She underwent an abd CT on 11/12/18 that showed suspicion for metastatic colon cancer and had a vaginal bx completed by SIDE PULLER of [facility] with recommendations given to f/u with oncology upon discharge. 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 She now presents with c/o blood in her stool and was sent back from Rehab for further evaluation. Oncology, GI and obg/dental sales representative consulted and she was recommended to f/u outpt as h/h remained stable. Family wanted her to go back to [facility], but PT recommended HH and her insurance denied further [facility] stay. Patient was then discharged home with . Discharge diagnosis and management: /Rectal bleeding - Likely source from colorectal cancer -H/H 11.7/33.7 s/p blood transfusion (6.7/19.5 on admission) -continue to monitor H/H and transfuse as needed -last colonoscopy 2015 showed sigmoid diverticulosis -last EGD 11/07/18 that showed gastritis and hiatal hernia (bx results- intestinal metaplasia, no H pylori; outpatient colonoscopy recommended for further evaluation of anemia as previously recommended in 2018 but patient lost to f/u) - Gi consulted and -no plans for colonoscopy at this time unless needed/recommended per oncology /Metastatic colon CA? - discussed with dr Stockton, has outpt followup setup on next week Sunday - Family does not want to consider hospice at this point, they want to continue physical rehabilitation and chemotherapy /acute on chronic iron deficiency anemia - cont iron supplement, s/p 1 dose of iron infusion /abdominal pain, due to cancer, pain mx as needed, stable /malnutrition, moderate, likely - due to underlying malignance - Dietitian following, recommended to increase oral intake as tolerated /DVT px, SCD Disposition: DC/TX-06 HOME UNDER HOME [facility] Time spent for discharge: 34 minutes Core Measure Documentation - Palliative Care Palliative Care/ Comfort Measures: Not Applicable - Core Measures Any of the following diagnoses?: none Exam - Physical Exam Narrative exam: General appearance: Present: no acute distress - EENT Eyes: PERRL, EOM intact ENT: hearing intact, clear oral mucosa Ears: bilateral: normal - Neck Neck: supple, normal ROM - Respiratory Respiratory effort: normal Respiratory: bilateral: CTA - Cardiovascular Rhythm: regular Heart Sounds: Present: S1 & S2. Absent: gallop, rub Extremities: pulses intact, No edema, normal color, Full ROM - Gastrointestinal General gastrointestinal: Present: soft, non-tender, non-distended, normal bowel sounds - Integumentary Integumentary: clear, warm, dry - Musculoskeletal Musculoskeletal: generalized weakness - Neurologic Neurologic: moves all extremities - Psychiatric Psychiatric: memory intact, appropriate mood/affect, intact judgment & insight - Constitutional Vitals: Temp Pulse Resp BP Pulse Ox 98.0 F 95 H 20 140/88 99 11/22/18 13:15 11/22/18 13:15 11/22/18 13:15 11/22/18 13:15 11/22/18 13:15 Plan Activity: fall precautions Weight Bearing Status: Non-Weight Bearing Diet: regular, advance as tolerated Special Instructions: physical therapy, occupational therapy, home health RN Follow up with: BECKY MOHAN MD [Primary Care Provider] - 3-5 Days NORMA LUA MD [Staff Physician] - 7 Days Prescriptions: Ferrous Sulfate [Feosol 325 MG tab] 325 mg PO BID #60 tablet
[2018-11-22] MEDS ORDERED: NACL 0.9 (PRIMING MACHINE ONLY DIALYSIS) MC ONE (14:37)
[2018-11-22] MEDS: TYLENOL PO PRN (23:33)
[2018-11-23] MEDS: TYLENOL PO PRN ×2 (06:21→21:55)
--- NOTE | 2018-11-23 08:12 | Progress Note ---
Assessment and Plan /Metastatic colon CA? - discussed with dr bahena, has outpt followup setup on next week Sunday - Family does not want to consider hospice at this point, they want to continue subacute rehabilitation and chemotherapy /Rectal bleeding - Likely source from colorectal cancer -H/H 11.7/33.7 s/p blood transfusion (6.7/19.5 on admission) -continue to monitor H/H and transfuse as needed -last colonoscopy 2015 showed sigmoid diverticulosis -last EGD 11/07/18 that showed gastritis and hiatal hernia (bx results- intestinal metaplasia, no H pylori; outpatient colonoscopy recommended for further evaluation of anemia as previously recommended in 2018 but patient lost to f/u) - Gi consulted and -no plans for colonoscopy at this time unless ne eded/recommended per oncology /acute on chronic iron deficiency anemia - cont iron supplement, will give 1 dose of iron infusion /abdominal pain, due to cancer, pain mx as needed, stable /malnutrition, moderate, likely - due to underlying malignance - Dietitian following, recommended to increase oral intake as tolerated /DVT px, SCD Disposition: Patient and family appeal for the discharge we will await for insurance follow-up. Subjective Date of service: 11/22/18 Interval history: Patient seen and examined. Medical records and medication list reviewed. No acute event overnight noted by the RN. Patient denies any chest pain or difficulty breathing. Patient is worried about her recent diagnosis Tolerating diet, patient was planned to discharge home with home health as she doesn't meet the criteria for subacute rehabilitation The patient and family appealed for the discharge Discussed plan of care at bedside with patient and her sister by phone. Objective - Constitutional Vitals: Vital Signs - 12hr 11/22/18 11/23/18 11/23/18 21:58 02:00 07:17 Temperature 98.1 F 98.0 F Pulse Rate 74 65 Respiratory 18 18 Rate Blood Pressure 116/62 Blood Pressure 138/72 [Right] O2 Sat by Pulse 99 96 98 Oximetry - Labs CBC & Chem 7: 11/22/18 05:25 11/22/18 05:25
[2018-11-23] MEDS: TRICOR PO SCH (09:11)
[2018-11-23] MEDS: PROTONIX IV SCH (09:12)
[2018-11-23] MEDS: SODIUM CHLORIDE FLUSH SYRINGE 10 ML IV SCH ×2 (09:12→21:52)
--- NOTE | 2018-11-23 17:23 | Event Note ---
Date: 11/22/18 [id number]
--- NOTE | 2018-11-24 01:10 | Consultation ---
REFERRING PHYSICIAN: Dr. Laboy. REASON FOR CONSULTATION: Colorectal cancer and anemia. HISTORY OF PRESENT ILLNESS: I saw the patient, an 78 years old female in the medical floor. The patient was recently admitted to the hospital. At that time, she was found to have a colon mass and the pelvic mass. Pelvic mass biopsy was done by animal services officer and pathology of this came out as colon cancer. The patient was transferred to [facility]. Because of rectal bleeding, the patient was brought back to the hospital. The patient's sister was present during the discussion. The patient has received blood transfusion. I have been asked to evaluate the patient. PAST MEDICAL HISTORY: Hypertension, CVA, debility, history of generalized weakness, cold intolerance. REVIEW OF SYSTEMS: No fever, no chills, no palpitations, no chest pain, no nausea, no vomiting, no rash. No seizures or syncope. No loss of consciousness. PAST SURGICAL HISTORY: Gallbladder surgery and hysterectomy. ALLERGIES: IBUPROFEN, PENICILLIN, CODEINE. HOME MEDICATIONS: Included atorvastatin, TriCor. PHYSICAL EXAMINATION: VITAL SIGNS: Temperature 98, pulse 95, respirations 20, BP 140/88. HEENT: No pallor, no icterus. NECK: No neck lymph nodes. HEART: S1, S2. LUNGS: Clear to auscultation anteriorly. ABDOMEN: Soft. No guarding. EXTREMITIES: No pedal edema. No calf tenderness. NEUROLOGIC: Alert, awake, oriented. LABORATORY DATA: White cell 4; at admission, hemoglobin 6.7 and then post-transfusion hemoglobin 12.4; platelet 287. Potassium 3.4, creatinine 0.4, calcium 9.2. Bilirubin 1.4. RADIOLOGY: None done during this admission. ASSESSMENT: 1. Colon cancer stage 4. CEA was elevated at 457. I discussed with the patient and family members regarding option of immunotherapy with chemotherapy. The patient's sister informed that she cannot go back home, she lives at the long term facility. The family will check if the long term facility will allow for the chemotherapy administration. 2. Anemia, status post transfusion. 3. History of gastrointestinal bleed. 4. History of hypertension. 5. History of cerebrovascular accident. 6. History of weakness. I will follow the patient during inpatient stay and then in the clinic setting. JOB# [id number] NM/NTS
[2018-11-24] MEDS: TRICOR PO SCH (09:52)
[2018-11-24] MEDS: SODIUM CHLORIDE FLUSH SYRINGE 10 ML IV SCH ×2 (09:52→21:19)
[2018-11-24] MEDS: PROTONIX IV SCH (09:52)
--- NOTE | 2018-11-24 11:21 | Progress Note ---
Assessment and Plan /Metastatic colon CA? - discussed with dr bahena, has outpt followup setup on next week Sunday - Family does not want to consider hospice at this point, they want to continue subacute rehabilitation and chemotherapy /Rectal bleeding - Likely source from colorectal cancer -H/H 11.7/33.7 s/p blood transfusion (6.7/19.5 on admission) -continue to monitor H/H and transfuse as needed -last colonoscopy 2015 showed sigmoid diverticulosis -last EGD 11/07/18 that showed gastritis and hiatal hernia (bx results- intestinal metaplasia, no H pylori; outpatient colonoscopy recommended for further evaluation of anemia as previously recommended in 2018 but patient lost to f/u) - Gi consulted and -no plans for colonoscopy at this time unless ne eded/recommended per oncology /acute on chronic iron deficiency anemia - cont iron supplement, will give 1 dose of iron infusion /abdominal pain, due to cancer, pain mx as needed, stable /malnutrition, moderate, likely - due to underlying malignance - Dietitian following, recommended to increase oral intake as tolerated /DVT px, SCD Disposition: Patient and family appeal for the discharge we will await for insurance follow-up. Subjective Date of service: 11/23/18 Interval history: Patient seen and examined. Medical records and medication list reviewed. No acute event overnight noted by the RN. Patient denies any chest pain or difficulty breathing. Patient is worried about her recent diagnosis Tolerating diet, patient was planned to discharge home with home health as she doesn't meet the criteria for subacute rehabilitation The patient and family appealed for the discharge Discussed plan of care at bedside with patient and her sister. Objective - Constitutional Vitals: Vital Signs - 12hr 11/24/18 11/24/18 11/24/18 01:59 07:16 07:41 Temperature 97.3 F L 98.1 F Pulse Rate 66 73 Pulse Rate [ 73 From Monitor] Respiratory 18 16 20 Rate Blood Pressure 125/69 140/63 O2 Sat by Pulse 98 99 95 Oximetry - Labs CBC & Chem 7: 11/22/18 05:25 11/22/18 05:25
--- NOTE | 2018-11-24 13:27 | Hem/Onc Progress Note ---
Assessment and Plan 1. Colon cancer stage 4. CEA was elevated at 457. I discussed with the patient and family members regarding option of immunotherapy with chemotherapy. The patient's sister informed that she cannot go back home, she lives at the longterm facility. The family will check if the longterm facility will allow for the chemotherapy administration. 2. Anemia, status post transfusion. 3. History of gastrointestinal bleed. 4. History of hypertension. 5. History of cerebrovascular accident. 6. History of weakness. anemia - s/p prbc IV iron OP follow up an option family deciding reg chemo vs hospice - Patient Problems (1) Colon cancer Current Visit: Yes Status: Acute Subjective Date of service: 11/24/18 Principal diagnosis: colon ca - stage IV Interval history: no rectal bleed Objective - Exam Narrative Exam: Pain none General appearance no acute distress Performance status - limited self care Eyes no icterus ENT no ear discharge LNs cervical not palpable Neck no mass Respiratory Normal Breath sounds - CTA CVS S1 S2 + Extremities normal temperature General GI Soft non tender Rectal deferred Female - deferred Skin warm Musculoskeletal no edema Neurologically AAOx3 - Constitutional Vitals: Last Vital Signs Temp 98.1 F 11/24/18 07:16 Pulse 73 11/24/18 07:41 Resp 20 11/24/18 07:41 BP 140/63 11/24/18 07:16 Pulse Ox 95 11/24/18 07:41 Medications & Allergies - Medications Allergies/Adverse Reactions: Allergies ibuprofen Allergy (Verified 11/12/18 21:44) Unknown Penicillins Allergy (Verified 11/12/18 21:43) Hives codeine Adverse Reaction (Verified 11/12/18 21:44) Nausea Home Medications: Home Medications Medication Instructions Recorded Confirmed Last Taken Type Atorvastatin [Lipitor] 40 mg PO DAILY 11/13/18 11/21/18 11/20/18 22:00 History Fenofibrate [Tricor] 145 mg PO QDAY 11/13/18 11/21/18 11/21/18 10:00 History Pantoprazole [Protonix TAB] 40 mg PO QDAY 11/13/18 11/21/18 11/21/18 10:00 History 40 Ferrous Sulfate [Feosol 325 MG tab] 325 mg PO BID #60 tablet 11/22/18 Unknown Rx Active Medications: Generic Name Dose Route Start Last Admin Trade Name Freq PRN Reason Stop Dose Admin Acetaminophen 650 mg 11/20/18 20:06 11/23/18 21:55 Tylenol PO 650 mg Q4H PRN Administration Pain MILD(1-3)/Fever >100.5/CLEMENT Atorvastatin Calcium 40 mg 11/20/18 22:00 11/23/18 21:52 Lipitor PO 40 mg QHS DEYA Administration Fenofibrate 145 mg 11/21/18 10:00 11/24/18 09:52 Tricor PO 145 mg QDAY DEYA Administration Ondansetron HCl 4 mg 11/20/18 20:06 Zofran IV Q8H PRN Nausea And Vomiting Pantoprazole Sodium 40 mg 11/23/18 10:00 11/24/18 09:52 Protonix IV 40 mg QDAY DEYA Administration Sodium Chloride 10 ml 11/20/18 22:00 11/24/18 09:52 Sodium Chloride Flush Syringe 10 Ml IV 10 ml BID DEYA Administration Sodium Chloride 10 ml 11/20/18 20:06 Sodium Chloride Flush Syringe 10 Ml IV PRN PRN LINE FLUSH
[2018-11-24] MEDS ORDERED: FERRLECIT 125 MG in NACL 0.9% 100 ML IV ONE (14:00)
[2018-11-24] MEDS: TYLENOL PO PRN ×2 (14:37→21:18)
--- NOTE | 2018-11-25 07:56 | Hem/Onc Progress Note ---
Assessment and Plan 1. Colon cancer stage 4. CEA was elevated at 457. I discussed with the patient and family members regarding option of immunotherapy with chemotherapy. The patient's sister informed that she cannot go back home, she lives at the half-way facility. The family will check if the half-way facility will allow for the chemotherapy administration. 2. Anemia, status post transfusion. 3. History of gastrointestinal bleed. 4. History of hypertension. 5. History of cerebrovascular accident. 6. History of weakness. anemia - s/p prbc IV iron OP follow up an option family looking into chemo vs hospice called and spoke to grandson - Patient Problems (1) Colon cancer Current Visit: Yes Status: Acute Subjective Date of service: 11/25/18 Principal diagnosis: colon ca Interval history: vaginal discharge Objective - Exam Narrative Exam: Pain none General appearance no acute distress Performance status - limited self care Eyes no icterus ENT no ear discharge LNs cervical not palpable Neck no mass Respiratory Normal Breath sounds - CTA CVS S1 S2 + Extremities normal temperature General GI Soft non tender Rectal deferred Female - deferred Skin warm Musculoskeletal no edema Neurologically AAOx3 - Constitutional Vitals: Last Vital Signs Temp 97.8 F 11/25/18 02:45 Pulse 79 11/25/18 02:45 Resp 16 11/25/18 02:45 BP 128/78 11/25/18 02:45 Pulse Ox 95 11/25/18 02:45 Medications & Allergies - Medications Allergies/Adverse Reactions: Allergies ibuprofen Allergy (Verified 11/12/18 21:44) Unknown Penicillins Allergy (Verified 11/12/18 21:43) Hives codeine Adverse Reaction (Verified 11/12/18 21:44) Nausea Home Medications: Home Medications Medication Instructions Recorded Confirmed Last Taken Type Atorvastatin [Lipitor] 40 mg PO DAILY 11/13/18 11/21/18 11/20/18 22:00 History Fenofibrate [Tricor] 145 mg PO QDAY 11/13/18 11/21/18 11/21/18 10:00 History Pantoprazole [Protonix TAB] 40 mg PO QDAY 11/13/18 11/21/18 11/21/18 10:00 History 40 Ferrous Sulfate [Feosol 325 MG tab] 325 mg PO BID #60 tablet 11/22/18 Unknown Rx Active Medications: Generic Name Dose Route Start Last Admin Trade Name Freq PRN Reason Stop Dose Admin Acetaminophen 650 mg 11/20/18 20:06 11/24/18 21:18 Tylenol PO 650 mg Q4H PRN Administration Pain MILD(1-3)/Fever >100.5/CLEMENT Atorvastatin Calcium 40 mg 11/20/18 22:00 11/24/18 21:18 Lipitor PO 40 mg QHS DEYA Administration Fenofibrate 145 mg 11/21/18 10:00 11/24/18 09:52 Tricor PO 145 mg QDAY DEYA Administration Ondansetron HCl 4 mg 11/20/18 20:06 Zofran IV Q8H PRN Nausea And Vomiting Pantoprazole Sodium 40 mg 11/25/18 10:00 Protonix PO DAILY DEYA Sodium Chloride 10 ml 11/20/18 22:00 11/24/18 21:19 Sodium Chloride Flush Syringe 10 Ml IV 10 ml BID DEYA Administration Sodium Chloride 10 ml 11/20/18 20:06 Sodium Chloride Flush Syringe 10 Ml IV PRN PRN LINE FLUSH
[2018-11-25 09:07] VITALS: BP 128/72
[2018-11-25] MEDS: TRICOR PO SCH (09:21)
[2018-11-25] MEDS: SODIUM CHLORIDE FLUSH SYRINGE 10 ML IV SCH (09:22)
--- NOTE | 2018-11-25 09:48 | Progress Note ---
Assessment and Plan /Metastatic colon CA? - discussed with dr bahena, has outpt followup setup on next week Sunday - Family does not want to consider hospice at this point, they want to continue subacute rehabilitation and chemotherapy /Rectal bleeding - Likely source from colorectal cancer -H/H 11.7/33.7 s/p blood transfusion (6.7/19.5 on admission) -continue to monitor H/H and transfuse as needed -last colonoscopy 2015 showed sigmoid diverticulosis -last EGD 11/07/18 that showed gastritis and hiatal hernia (bx results- intestinal metaplasia, no H pylori; outpatient colonoscopy recommended for further evaluation of anemia as previously recommended in 2018 but patient lost to f/u) - Gi consulted and -no plans for colonoscopy at this time unless ne eded/recommended per oncology /acute on chronic iron deficiency anemia - cont iron supplement, will give 1 dose of iron infusion /abdominal pain, due to cancer, pain mx as needed, stable /malnutrition, moderate, likely - due to underlying malignance - Dietitian following, recommended to increase oral intake as tolerated /DVT px, SCD Disposition: Patient and family appeal for the discharge we will await for insurance follow-up. Subjective Date of service: 11/24/18 Principal diagnosis: colon ca Interval history: Patient seen and examined. Medical records and medication list reviewed. No acute event overnight noted by the RN. Patient denies any chest pain or difficulty breathing. Patient is worried about her recent diagnosis Tolerating diet, patient was planned to discharge home with home health as she doesn't meet the criteria for subacute rehabilitation The patient and family appealed for the discharge Discussed plan of care at bedside with patient and her sister. Objective - Constitutional Vitals: Vital Signs - 12hr 11/25/18 11/25/18 11/25/18 02:45 08:06 09:11 Temperature 97.8 F 98.4 F Pulse Rate 79 69 Respiratory 16 19 Rate Blood Pressure 128/78 128/72 O2 Sat by Pulse 95 99 97 Oximetry - Labs CBC & Chem 7: 11/22/18 05:25 11/22/18 05:25
[2018-11-25] MEDS ORDERED: PROTONIX PO SCH (10:00)
== END 2018-11-25 11:30 | disposition home health service (06) | DRG 374 ==
LOC: ED 17:21 → IMCU 20:06 → 2B-ACE 11-21 15:00
PROVIDERS: ADMIT Internal Medicine; ATTEND Internal Medicine
PROC: 30233N1 Transfusion of Nonautologous Red Blood Cells into Peripheral Vein, Percutaneous Approach (ICD-10-PCS; principal; 2018-11-20)
DX: C19 Malignant neoplasm of rectosigmoid junction (principal); E43 Unspecified severe protein-calorie malnutrition; R19.00 Intra-abdominal and pelvic swelling, mass and lump, unspecified site; D50.0 Iron deficiency anemia secondary to blood loss (chronic); I10 Essential (primary) hypertension; Z86.73 Personal history of transient ischemic attack (TIA), and cerebral infarction without residual deficits; Z88.0 Allergy status to penicillin; Z88.5 Allergy status to narcotic agent; Z68.20 Body mass index [BMI] 20.0-20.9, adult; Z79.899 Other long term (current) drug therapy; Z87.440 Personal history of urinary (tract) infections; Z90.49 Acquired absence of other specified parts of digestive tract; Z90.710 Acquired absence of both cervix and uterus
CPT/HCPCS: 36415; 80048; 80053; 82271; 85025; 85610; 85730; 86850; 86900; 86901; 86920; 96374; 99285; G0378; A9270-GY; C9113; J2405; J2916; J7030; J7040; P9016